=== PATIENT | male | born 1950 | race Caucasian/White ===

== ENCOUNTER 2018-04-13 20:37 | Inpatient (IN) ==
[2018-04-13] MEDS ORDERED: 0.9 % Sodium Chloride 1,000 ML IVC ONE (21:06)
[2018-04-13] MEDS ORDERED: Ondansetron ODT 4 MG TAB.RAPDIS SL ONE (21:06)
[2018-04-13] MEDS ORDERED: *HR* FentaNYL (PF) 100 MCG/2 ML VIAL IVP ONE ×2 (21:14→22:44)
[2018-04-13 21:31] LABS: Basophils # 0.1 K/mcL (0.0-0.2); Basophils % 0.4 %; Eosinophils # 0.2 K/mcL (0.0-0.6); Eosinophils % 1.5 %; Hematocrit 47.8 % (37.5-50.1); Hemoglobin 15.9 g/dL (12.9-16.9); Immature Granulocytes % 0.4 % (0-4); Lymphocytes # 1.2 K/mcL (0.6-4.6); Lymphocytes % 9.9 %; Mean Corpuscular HGB Conc 33.3 g/dL (31.6-35.5); Mean Corpuscular Volume 87.1 fL (83.0-100.0); Monocytes % 8.7 %; Neutrophils # 9.3 K/mcL (1.6-8.9); Platelet Count 178 K/mcL (140-400); Red Blood Count 5.49 M/mcL (4.19-5.50); Red Cell Distribution Width 13.9 % (11.5-14.5); Segmented Neutrophils % 79.1 %
[2018-04-13 21:50] LABS: Albumin 4.8 g/dL (3.5-5.7); Albumin/Globulin Ratio 1.4 (1.1-2.2); Bilirubin,Direct 0.1 mg/dL (0.0-0.2); Bilirubin,Indirect 0.8 mg/dL (0.0-1.2); Bilirubin,Total 0.9 mg/dL (0.3-1.0); Globulin 3.4 g/dL (2.4-3.5); Potassium 4.6 mEq/L (3.5-5.1); Total Protein 8.2 g/dL (6.4-8.9)
[2018-04-13 21:55] LABS: Bilirubin,Urine Negative (Negative); Blood,Urine Small (Negative); Clarity,Urine Clear (Clear); Color,Urine Yellow (Yellow); Glucose,Urine (UA) Normal (Normal); Ketones,Urine Negative (Negative); Leukocyte Esterase,Urine Negative (Negative); Nitrite,Urine Negative (Negative); PH,Urine 5.5 pH Units (5.0-8.0); Protein,Urine 100 mg/dL (Neg-Trace); Specific Gravity,Urine 1.013 (1.010-1.025); Urobilinogen,Urine Normal (Normal)
[2018-04-13 21:57] LABS: Bacteria,Urine None Seen per hpf (None-Few); Hyaline Casts,Urine None Seen per lpf (None-Few); Squamous Epithelial Cell,Urine None Seen per lpf (None-Few)
--- NOTE | 2018-04-13 22:14 | Emergency Department Note ---
Disposition Clinical Impression: Nephrolithiasis Disposition: Admitted As Inpatient Condition: Fair Time of Disposition: 23:32 Abdominal Pain HPI - General Chief Complaint: ED Abdominal Pain Stated Complaint: Fever, [place] Time Seen by Provider: 04/13/18 20:44 Source: patient, family Mode of arrival: ambulatory Limitations: no limitations Nursing Notes Reviewed: Yes Vital Signs Reviewed: Yes - History of Present Illness HPI Narrative: Mr. Solomon is a 67 yo male that presents for L low back pain that began yesterday. He notes pain began yesterday evening, feels similar to previous kidney stone. Diagnosed with 5mm obstructing stone in January, patient does not recall passing this. He has had nausea and vomiting since yesterday, no hematemsis. Fever of 101F yesterday. Notes this afternoon abdominal pressure and pain. He has been taking the oxycodone every 4 hours due to severity of pain. Has not taken his medications today due to nausea and vomiting. PMHx of DM , HTN, a fib, COPD, carotid stenosis, and PVD with 2 LE stents. Patient notes that his abdomen appears its normal size, stating it is normally large and taut. Normal BM yesterday, no bloody or black stools. Pain Scale: 8 - Related Data Home Medications Medication Instructions Recorded Confirmed Aspirin Enteric Coated [Aspirin EC] 325 mg PO DAILY 07/23/15 04/14/18 Atorvastatin [Lipitor] 20 mg PO HS 07/23/15 04/14/18 Carvedilol 12.5 mg PO BID 07/23/15 04/14/18 Cholestyramine 2 gm PO DAILY 07/23/15 04/14/18 Lisinopril [Zestril] 10 mg PO DAILY 07/23/15 04/14/18 Metformin HCl [Glucophage] 1,000 mg PO BID 07/23/15 04/14/18 Diltiazem [Cardizem] 240 mg PO DAILY 09/16/16 04/14/18 Gluc 2Kcl/Chondr/Padmini Hy/Hy AC 1,000 mg PO DAILY 09/16/16 04/14/18 [Glucosamine & Chondroitin Cap] Cyanocobalamin/Folic Acid [Vitamin 1,000 each PO DAILY 04/14/18 04/14/18 [id number] Acid Tablet] traZODone [TraZODone] 50 - 100 mg PO HS PRN 04/14/18 04/14/18 Allergies Allergy/AdvReac Type Severity Reaction Status Date / Time No Known Allergies Allergy Verified 04/13/18 20:41 All systems ED: reviewed and negative except as stated. Review of Systems: As Per HPI Constitutional: Reports: fever, chills ENT ED: Denies: throat pain, congestion Cardiovascular: Denies: chest pain Respiratory: Denies: dyspnea Gastrointestinal: Reports: abdominal pain, nausea, vomiting. Denies: diarrhea Genitourinary: Denies: dysuria, frequency, hematuria Musculoskeletal: Reports: back pain Integumentary: Denies: rash Neurological: Denies: weakness Abdominal Pain PMH - Past Medical History Medical history: Reports: atrial fibrillation, diabetes, hypertension, kidney stones Male Surgical History: Reports: carotid endarterectomy, cholecystectomy, other Psychiatric history: Reports: no psych history - Social History Smoking status: Former smoker Alcohol use: Reports: none Drug use: Reports: none Physical Exam - General Limitations: no limitations General appearance: alert, in no apparent distress - Head Head exam: atraumatic, normocephalic - Eye Eye exam: Present: normal appearance. Absent: scleral icterus, conjunctival injection - ENT ENT exam: normal exam, mucous membranes dry - Neck Neck exam: Present: normal inspection, full ROM - Chest Chest inspection: Present: normal inspection, symmetric chest wall rise. Absent : tenderness - Respiratory Respiratory exam: Present: normal lung sounds bilaterally. Absent: respiratory distress, accessory muscle use - Cardiovascular Cardiovascular exam: Present: regular rate, normal rhythm, +S1, +S2 - Abdominal Exam Abdominal exam: Present: tenderness (diffuse, worst in bilateral lower abdomen) , distention (patient and state this is not new.), hyperactive bowel sounds. Absent: guarding, rebound, rigidity - Extremities Exam Extremities exam: Present: normal inspection. Absent: tenderness, pedal edema - Back Exam Back exam: Present: CVA tenderness (L) (slightly lower than true CVA) - Neurological Exam Neurological exam: Present: alert, oriented X3 - Psychiatric Psychiatric exam: Present: normal affect, normal mood - Skin Skin exam: Present: warm, dry, intact, normal color Course - Consultations Consultation #1: Accepted by hospitalist, Dr. Doyle. Urologist business continuity director, Dr. Hahn, for likely consult while inpatient. Vital Signs Temperature 98.1 F 09/11/18 20:39 Pulse Rate 85 04/13/18 20:39 Respiratory Rate 18 04/13/18 20:39 Blood Pressure 174/74 04/13/18 20:39 O2 Sat by Pulse Oximetry 96 04/13/18 20:39 Temperature 99 F 04/15/18 00:04 Pulse Rate 89 04/15/18 00:38 Respiratory Rate 16 04/15/18 00:38 Blood Pressure 151/72 04/15/18 00:38 O2 Sat by Pulse Oximetry 91 04/15/18 00:38 Oxygen Delivery Oxygen Delivery Room Air Abdominal Pain - MDM Narrative Medical decision making narrative: Concern for obstructing kidney stone. Plan to recheck CT in addition to labs. Will give pain medication and zofran for symptomatic treatment. CT showing :There is a 5 mm obstructing stone in the mid left ureter with mild upstream hydroureteronephrosis. Additional nonobstructive left intrarenal stones are present. UA negative for UTI. Patient afebrile here in the ED. Creatinine elevated, likely secondary to dehydration. With poorly controlled pain and obstructing stone, only slightly moved from CT in January. Urology called, made aware of plan to admit. Hospitalist contacted and accepted patient. - Medical Records Medical records reviewed: Yes I reviewed the patient's medical records. - Lab Data Lab results reviewed: Yes I reviewed the patient's lab results. Result diagrams: 04/14/18 02:52 04/14/18 02:52 Lab Results 04/13/18 04/13/18 04/13/18 Range/Units 20:49 21:09 21:09 WBC 11.7 H (4.3-11.1) K/mcL RBC 5.49 (4.19-5.50) M/mcL Hgb 15.9 (12.9-16.9) g/dL Hct 47.8 (37.5-50.1) % MCV 87.1 (83.0-100.0) fL MCH 29.0 (28.0-33.3) pg MCHC 33.3 (31.6-35.5) g/dL RDW 13.9 (11.5-14.5) % Plt Count 178 (140-400) K/mcL MPV 10.0 (9.4-12.4) fL Immature Gran % 0.4 (0-4) % Seg Neutrophils % 79.1 % Lymphocytes % 9.9 % Monocytes % 8.7 % Eosinophils % 1.5 % Basophils % 0.4 % Neutrophils # 9.3 H (1.6-8.9) K/mcL Lymphocytes # 1.2 (0.6-4.6) K/mcL Monocytes # 1.0 (0.0-1.3) K/mcL Eosinophils # 0.2 (0.0-0.6) K/mcL Basophils # 0.1 (0.0-0.2) K/mcL PT (9.4-12.1) Seconds INR APTT (26.0-36.0) Seconds Sodium 136 (136-145) mEq/L Potassium 4.6 (3.5-5.1) mEq/L Chloride 99 (98-107) mEq/L Carbon Dioxide 26 (23-29) mEq/L BUN 18 (8-23) mg/dL Creatinine 2.06 H (0.70-1.30) mg/dL Est GFR ( Amer) 39 L (> 60) Est GFR (Non-Af Amer) 32 L (> 60) BUN/Creatinine Ratio 9 (6-26) Glucose 118 H (70-105) mg/dL POC Glucose (70-99) mg/dL Calculated Osmolality 285 (280-300) Lactic Acid (0.5-2.2) mmol/L Calcium 10.0 (8.6-10.3) mg/dL Total Bilirubin 0.9 (0.3-1.0) mg/dL Direct Bilirubin 0.1 (0.0-0.2) mg/dL Indirect Bilirubin 0.8 (0.0-1.2) mg/dL AST 18 (13-39) Units/L ALT 20 (7-52) Units/L Alkaline Phosphatase 77 (34-104) Units/L Serum Total Protein 8.2 (6.4-8.9) g/dL Albumin 4.8 (3.5-5.7) g/dL Globulin 3.4 (2.4-3.5) g/dL Albumin/Globulin Ratio 1.4 (1.1-2.2) Lipase 33 (11-82) Units/L Urine Color Yellow (Yellow) Urine Clarity Clear (Clear) Urine pH 5.5 (5.0-8.0) pH Units Ur Specific [place] 1.013 (1.010-1.025) Urine Protein 100 H (Neg-Trace) mg/dL Urine Glucose (UA) Normal (Normal) mg/dL Urine Ketones Negative (Negative) mg/dL Urine Blood Small H (Negative) Urine Nitrite Negative (Negative) Urine Bilirubin Negative (Negative) Urine Urobilinogen Normal (Normal) mg/dL Ur Leukocyte Esterase Negative (Negative) Urine Microscopic RBC 5-15 H (0-3) per hpf Urine Microscopic WBC 3-5 H (0-3) per hpf Ur Squamous Epith Cells None Seen (None-Few) per lpf Urine Bacteria None Seen (None-Few) per hpf Hyaline Casts None Seen (None-Few) per lpf Ur Culture Indicated? NO (NO) 04/13/18 04/14/18 04/14/18 Range/Units 21:50 01:09 02:52 WBC 10.4 (4.3-11.1) K/mcL RBC 5.03 (4.19-5.50) M/mcL Hgb 14.4 D (12.9-16.9) g/dL Hct 44.2 (37.5-50.1) % MCV 87.9 (83.0-100.0) fL MCH 28.6 (28.0-33.3) pg MCHC 32.6 (31.6-35.5) g/dL RDW 14.1 (11.5-14.5) % Plt Count 157 (140-400) K/mcL MPV 10.6 (9.4-12.4) fL Immature Gran % 0.3 (0-4) % Seg Neutrophils % 76.8 % Lymphocytes % 13.1 % Monocytes % 8.7 % Eosinophils % 0.8 % Basophils % 0.3 % Neutrophils # 8.0 (1.6-8.9) K/mcL Lymphocytes # 1.4 (0.6-4.6) K/mcL Monocytes # 0.9 (0.0-1.3) K/mcL Eosinophils # 0.1 (0.0-0.6) K/mcL Basophils # 0.0 (0.0-0.2) K/mcL PT (9.4-12.1) Seconds INR APTT (26.0-36.0) Seconds Sodium (136-145) mEq/L Potassium (3.5-5.1) mEq/L Chloride (98-107) mEq/L Carbon Dioxide (23-29) mEq/L BUN (8-23) mg/dL Creatinine (0.70-1.30) mg/dL Est GFR ( Amer) (> 60) Est GFR (Non-Af Amer) (> 60) BUN/Creatinine Ratio (6-26) Glucose (70-105) mg/dL POC Glucose 109 H (70-99) mg/dL Calculated Osmolality (280-300) Lactic Acid 1.5 (0.5-2.2) mmol/L Calcium (8.6-10.3) mg/dL Total Bilirubin (0.3-1.0) mg/dL Direct Bilirubin (0.0-0.2) mg/dL Indirect Bilirubin (0.0-1.2) mg/dL AST (13-39) Units/L ALT (7-52) Units/L Alkaline Phosphatase (34-104) Units/L Serum Total Protein (6.4-8.9) g/dL Albumin (3.5-5.7) g/dL Globulin (2.4-3.5) g/dL Albumin/Globulin Ratio (1.1-2.2) Lipase (11-82) Units/L Urine Color (Yellow) Urine Clarity (Clear) Urine pH (5.0-8.0) pH Units Ur Specific [place] (1.010-1.025) Urine Protein (Neg-Trace) mg/dL Urine Glucose (UA) (Normal) mg/dL Urine Ketones (Negative) mg/dL Urine Blood (Negative) Urine Nitrite (Negative) Urine Bilirubin (Negative) Urine Urobilinogen (Normal) mg/dL Ur Leukocyte Esterase (Negative) Urine Microscopic RBC (0-3) per hpf Urine Microscopic WBC (0-3) per hpf Ur Squamous Epith Cells (None-Few) per lpf Urine Bacteria (None-Few) per hpf Hyaline Casts (None-Few) per lpf Ur Culture Indicated? (NO) 04/14/18 04/14/18 04/14/18 Range/Units 02:52 02:52 02:52 WBC (4.3-11.1) K/mcL RBC (4.19-5.50) M/mcL Hgb (12.9-16.9) g/dL Hct (37.5-50.1) % MCV (83.0-100.0) fL MCH (28.0-33.3) pg MCHC (31.6-35.5) g/dL RDW (11.5-14.5) % Plt Count (140-400) K/mcL MPV (9.4-12.4) fL Immature Gran % (0-4) % Seg Neutrophils % % Lymphocytes % % Monocytes % % Eosinophils % % Basophils % % Neutrophils # (1.6-8.9) K/mcL Lymphocytes # (0.6-4.6) K/mcL Monocytes # (0.0-1.3) K/mcL Eosinophils # (0.0-0.6) K/mcL Basophils # (0.0-0.2) K/mcL PT 13.0 H (9.4-12.1) Seconds INR 1.2 APTT 32.4 (26.0-36.0) Seconds Sodium 137 (136-145) mEq/L Potassium 4.4 (3.5-5.1) mEq/L Chloride 103 (98-107) mEq/L Carbon Dioxide 27 (23-29) mEq/L BUN 18 (8-23) mg/dL Creatinine 1.91 H (0.70-1.30) mg/dL Est GFR ( Amer) 43 L (> 60) Est GFR (Non-Af Amer) 35 L (> 60) BUN/Creatinine Ratio 9 (6-26) Glucose 112 H (70-105) mg/dL POC Glucose (70-99) mg/dL Calculated Osmolality 287 (280-300) Lactic Acid (0.5-2.2) mmol/L Calcium 9.0 (8.6-10.3) mg/dL Total Bilirubin (0.3-1.0) mg/dL Direct Bilirubin (0.0-0.2) mg/dL Indirect Bilirubin (0.0-1.2) mg/dL AST (13-39) Units/L ALT (7-52) Units/L Alkaline Phosphatase (34-104) Units/L Serum Total Protein (6.4-8.9) g/dL Albumin (3.5-5.7) g/dL Globulin (2.4-3.5) g/dL Albumin/Globulin Ratio (1.1-2.2) Lipase (11-82) Units/L Urine Color (Yellow) Urine Clarity (Clear) Urine pH (5.0-8.0) pH Units Ur Specific [place] (1.010-1.025) Urine Protein (Neg-Trace) mg/dL Urine Glucose (UA) (Normal) mg/dL Urine Ketones (Negative) mg/dL Urine Blood (Negative) Urine Nitrite (Negative) Urine Bilirubin (Negative) Urine Urobilinogen (Normal) mg/dL Ur Leukocyte Esterase (Negative) Urine Microscopic RBC (0-3) per hpf Urine Microscopic WBC (0-3) per hpf Ur Squamous Epith Cells (None-Few) per lpf Urine Bacteria (None-Few) per hpf Hyaline Casts (None-Few) per lpf Ur Culture Indicated? (NO) 04/14/18 04/14/18 04/14/18 Range/Units 05:56 07:55 11:56 WBC (4.3-11.1) K/mcL RBC (4.19-5.50) M/mcL Hgb (12.9-16.9) g/dL Hct (37.5-50.1) % MCV (83.0-100.0) fL MCH (28.0-33.3) pg MCHC (31.6-35.5) g/dL RDW (11.5-14.5) % Plt Count (140-400) K/mcL MPV (9.4-12.4) fL Immature Gran % (0-4) % Seg Neutrophils % % Lymphocytes % % Monocytes % % Eosinophils % % Basophils % % Neutrophils # (1.6-8.9) K/mcL Lymphocytes # (0.6-4.6) K/mcL Monocytes # (0.0-1.3) K/mcL Eosinophils # (0.0-0.6) K/mcL Basophils # (0.0-0.2) K/mcL PT (9.4-12.1) Seconds INR APTT (26.0-36.0) Seconds Sodium (136-145) mEq/L Potassium (3.5-5.1) mEq/L Chloride (98-107) mEq/L Carbon Dioxide (23-29) mEq/L BUN (8-23) mg/dL Creatinine (0.70-1.30) mg/dL Est GFR ( Amer) (> 60) Est GFR (Non-Af Amer) (> 60) BUN/Creatinine Ratio (6-26) Glucose (70-105) mg/dL POC Glucose 110 H 109 H 104 H (70-99) mg/dL Calculated Osmolality (280-300) Lactic Acid (0.5-2.2) mmol/L Calcium (8.6-10.3) mg/dL Total Bilirubin (0.3-1.0) mg/dL Direct Bilirubin (0.0-0.2) mg/dL Indirect Bilirubin (0.0-1.2) mg/dL AST (13-39) Units/L ALT (7-52) Units/L Alkaline Phosphatase (34-104) Units/L Serum Total Protein (6.4-8.9) g/dL Albumin (3.5-5.7) g/dL Globulin (2.4-3.5) g/dL Albumin/Globulin Ratio (1.1-2.2) Lipase (11-82) Units/L Urine Color (Yellow) Urine Clarity (Clear) Urine pH (5.0-8.0) pH Units Ur Specific [place] (1.010-1.025) Urine Protein (Neg-Trace) mg/dL Urine Glucose (UA) (Normal) mg/dL Urine Ketones (Negative) mg/dL Urine Blood (Negative) Urine Nitrite (Negative) Urine Bilirubin (Negative) Urine Urobilinogen (Normal) mg/dL Ur Leukocyte Esterase (Negative) Urine Microscopic RBC (0-3) per hpf Urine Microscopic WBC (0-3) per hpf Ur Squamous Epith Cells (None-Few) per lpf Urine Bacteria (None-Few) per hpf Hyaline Casts (None-Few) per lpf Ur Culture Indicated? (NO) 04/14/18 Range/Units 16:35 WBC (4.3-11.1) K/mcL RBC (4.19-5.50) M/mcL Hgb (12.9-16.9) g/dL Hct (37.5-50.1) % MCV (83.0-100.0) fL MCH (28.0-33.3) pg MCHC (31.6-35.5) g/dL RDW (11.5-14.5) % Plt Count (140-400) K/mcL MPV (9.4-12.4) fL Immature Gran % (0-4) % Seg Neutrophils % % Lymphocytes % % Monocytes % % Eosinophils % % Basophils % % Neutrophils # (1.6-8.9) K/mcL Lymphocytes # (0.6-4.6) K/mcL Monocytes # (0.0-1.3) K/mcL Eosinophils # (0.0-0.6) K/mcL Basophils # (0.0-0.2) K/mcL PT (9.4-12.1) Seconds INR APTT (26.0-36.0) Seconds Sodium (136-145) mEq/L Potassium (3.5-5.1) mEq/L Chloride (98-107) mEq/L Carbon Dioxide (23-29) mEq/L BUN (8-23) mg/dL Creatinine (0.70-1.30) mg/dL Est GFR ( Amer) (> 60) Est GFR (Non-Af Amer) (> 60) BUN/Creatinine Ratio (6-26) Glucose (70-105) mg/dL POC Glucose 123 H (70-99) mg/dL Calculated Osmolality (280-300) Lactic Acid (0.5-2.2) mmol/L Calcium (8.6-10.3) mg/dL Total Bilirubin (0.3-1.0) mg/dL Direct Bilirubin (0.0-0.2) mg/dL Indirect Bilirubin (0.0-1.2) mg/dL AST (13-39) Units/L ALT (7-52) Units/L Alkaline Phosphatase (34-104) Units/L Serum Total Protein (6.4-8.9) g/dL Albumin (3.5-5.7) g/dL Globulin (2.4-3.5) g/dL Albumin/Globulin Ratio (1.1-2.2) Lipase (11-82) Units/L Urine Color (Yellow) Urine Clarity (Clear) Urine pH (5.0-8.0) pH Units Ur Specific [place] (1.010-1.025) Urine Protein (Neg-Trace) mg/dL Urine Glucose (UA) (Normal) mg/dL Urine Ketones (Negative) mg/dL Urine Blood (Negative) Urine Nitrite (Negative) Urine Bilirubin (Negative) Urine Urobilinogen (Normal) mg/dL Ur Leukocyte Esterase (Negative) Urine Microscopic RBC (0-3) per hpf Urine Microscopic WBC (0-3) per hpf Ur Squamous Epith Cells (None-Few) per lpf Urine Bacteria (None-Few) per hpf Hyaline Casts (None-Few) per lpf Ur Culture Indicated? (NO) - Radiology Data Radiology results reviewed: Yes I reviewed the patient's radiology results. Attestation Statement - Attestation Attestation: I, Mark Shah, examined this patient and my medical decision-making was reviewed with the ESCAPEMENT MATCHER/PA/Advanced Practice Nurse/Resident Physician. I agree with the documented findings, disposition and treatment plan as described except to the extent set forth below. 67-year-old male presents emergency Department with concerns of flank pain. Patient states it feels similar to his previous kidney stone. Repeat CT shows that the stone has only moved short distance compared to month and a half ago. Patient reportedly had a fever prior to arrival. He denies recent trauma. He was given multiple doses of pain medication emergency department. We spoke with the urologist who agreed that He will be admitted to the hospitalist for further care and evaluation.
--- NOTE | 2018-04-13 23:58 | Internal Med History&Physical ---
<Sven Araujo - Last Filed: 04/14/18 00:18> Date of Encounter: 04/14/18 Time of Encounter: 23:58 Internal Medicine - H&P: HPI Chief complaint: N/V fever Admitted From: Home Plans for Post Hospital Care: Home History of present illness: Mr. Solomon is a 67 year old male presents with cc of N/V and fever. Patient developed N/V last night along with left flank pain that was sharp intermittent without radiation. He has hx of kidney stones and this felt similar. He reports vomiting yellow stomach contents 12x since presentation and has not had a mean in the last 24 hours. He denies hemetemesis He had a fever of 101. His pain worsened this afternoon and now involved the left lower abdomen. He took oxycodone for his pain but that did not completely relieve it and he took zofran for nausea without success. He reports decrease urine production and once had episode of dysuria. He denies diarrhea. Patient underwent Ct/abdomen pelvis and was found to have 5mm obstructing stone in the mid left ureter with mild upstream hydrouretonephrosis along with nonobstrutive right nephorlithiasis. Urology was consulted by ED. Patient presented to [facility] ED with similar complaint in January 2018 and was known to have this 5mm kidney stone in the left upper ureter causing left obstructive uropathy and was followed by urology outpatient with conservative treatment. Past Med Surg Social Fam HX - Past Medical History Medical history: atrial fibrillation, diabetes, hypertension, kidney stones Additional medical history: Peripheral artery disease Psychiatric history: no psych history - Past Surgical History Surgical History: vascular surgery (b/l LE stents for PAD) Additional surgical history: ablasion - Social History Smoking Status: Former smoker Smokeless Tobacco Status: No Alcohol use: none Drug use: none - Family History Father Hx Family Cardiac Disorders: Yes (cabg) Brother Hx Family Cardiac Disorders: Yes (PAD, carotid artherosclerotic disease) Internal Medicine - H&P: Meds Aspirin Enteric Coated [Aspirin EC] 325 mg PO DAILY 07/23/15 [History] Atorvastatin [Lipitor] 20 mg PO HS 07/23/15 [History] Carvedilol 12.5 mg PO BID 07/23/15 [History] Cholestyramine 2 gm PO DAILY 07/23/15 [History] Lisinopril [Zestril] 10 mg PO DAILY 07/23/15 [History] Metformin HCl [Glucophage] 1,000 mg PO BID 07/23/15 [History] Diltiazem [Cardizem] 240 mg PO DAILY 09/16/16 [History] Gluc 2Kcl/Chondr/Padmini Hy/Hy AC [Glucosamine & Chondroitin Cap] 1,000 mg PO DAILY 09/16/16 [History] Ondansetron ODT [Zofran ODT] 4 mg SL Q4HR PRN #10 tab.rapdis 02/24/18 [Rx] Oxycodone HCl [Oxaydo] 7.5 mg PO Q4-6H PRN 4 Days #15 tablet.orl 02/24/18 [Rx] Cyanocobalamin/Folic Acid [Vitamin C45-Fspbk Acid Tablet] 1,000 each PO DAILY [History] 3 Allergy/AdvReac Type Severity Reaction Status Date / Time No Known Allergies Allergy Verified 04/13/18 20:41 All Systems PM: A 10-system review of systems was performed and is negative for pertinent findings except as documented above in the HPI. Review of systems: Constitutional: Reports fevers, denies chills HEENT: Denies headache, trauma, blurry vision, eye discharge, ear pain, ear discharge neck pain, sore throat, rhinorrhea Heart: Denies chest pain palpitations, LE edema Lungs: Denies shortness of breath cough Abdomen: Reports abdominal pain, nausea, vomiting. Denies diarrhea MSK: Reports back pain. Denies falls, joint pain Kidney: Reports dysuria and denies hematuria Skin: Denies rash, ulcers Neuro: Denies numbness and tingling Psych: denies axniety, depression - Constitutional Vitals: Temp Pulse Resp BP Pulse Ox 98.1 F 86 18 147/73 94 04/13/18 20:39 04/13/18 23:16 04/13/18 23:16 04/13/18 23:16 04/13/18 23:16 Exam: General: pleasant, moderate distress, dry heaving HEENT: Head atraumatic, normocephalic, EOMI, PERRL, absent ear discharge or trauma, Moist Mucous Membranes, uvula midline Neck: nontender to palpation, absent lymphadenopathy, Cardiovascualr: Regular rate and rhythm with no murmur, absent gallops or rubs, absent pedal edema, radial pulses 2 out of 4 Lungs: Clear to auscultation bilaterally, not in respiratory distress Abdomen: Soft tender LLQ, nondistended positive bowel sounds, Skin: warm and dry, absent rash, absent open wounds and nodules MSK: absent clubbing, cyanosis, joints without swelling Neuro: Cranial nerves II through XII intact, UE and LE sensation equal bilaterally, UE and LEstrength 5/5, alert oriented 3, Psych: good insight and judgment, Internal Med - H&P Results - Labs CBC & Chem 7: 04/13/18 21:09 04/13/18 21:09 - Assessment and plan (1) Obstructive nephropathy Current Visit: Yes Status: Acute Assessment and plan: 2nd to 5mm renal stone in the left ureter with hydrouretonephrosis as per CT abdomen/pelvis afebrile, white count 11.7 patient has hx of nephrolithiasis and followed by urology Will start IV fluids, flomax, pain control, phenergan prn for nasuea, npo, consult urology, pt/inr (2) JENN (acute kidney injury) Current Visit: Yes Status: Acute Assessment and plan: 2nd to obstructive uropathy jenn on ckd3 IVF started repeat bmp in the morning (3) Atrial fibrillation Current Visit: Yes Status: Acute Assessment and plan: hx of afib controlled rate continue cardizem and carvedilol hold xeralto Qualifiers: Atrial fibrillation type: unspecified Qualified Code(s): I48.91 - Unspecified atrial fibrillation (4) Diabetes mellitus Current Visit: Yes Status: Acute Assessment and plan: hx of DM2 non-insulin dependent start low dose SSI NPO q6h accuchecks Qualifiers: Diabetes mellitus type: type 2 Diabetes mellitus public health insulin use: without public health use Diabetes mellitus complication status: without complication Qualified Code(s): E11.9 - Type 2 diabetes mellitus without complications (5) Hx of essential hypertension Current Visit: Yes Status: Acute Assessment and plan: controlled continue carvedilol (6) Nephrolithiasis Current Visit: Yes Status: Chronic - Time Spent With Patient Total time spent is greater than 50% in coordination of care (as documented) at patient's floor/unit and/or counseling patient: <Uche Horton - Last Filed: 04/14/18 00:47> Date of Encounter: 04/14/18 Internal Medicine - H&P: HPI History of present illness: Mr. Solomon is a 67 year old male All Systems PM: A 10-system review of systems was performed and is negative for pertinent findings except as documented above in the HPI. - Constitutional Vitals: Temp Pulse Resp BP Pulse Ox 98.1 F 86 18 147/73 94 04/13/18 20:39 04/13/18 23:16 04/13/18 23:16 04/13/18 23:16 04/13/18 23:16 Internal Med - H&P Results - Labs CBC & Chem 7: 04/13/18 21:09 04/13/18 21:09 - Assessment and plan (1) Nephrolithiasis Current Visit: Yes Status: Chronic (2) Atrial fibrillation Current Visit: Yes Status: Acute Qualifiers: Atrial fibrillation type: unspecified Qualified Code(s): I48.91 - Unspecified atrial fibrillation (3) Diabetes mellitus Current Visit: Yes Status: Acute Qualifiers: Diabetes mellitus type: type 2 Diabetes mellitus public health insulin use: without public health use Diabetes mellitus complication status: without complication Qualified Code(s): E11.9 - Type 2 diabetes mellitus without complications (4) Hx of essential hypertension Current Visit: Yes Status: Acute (5) Obstructive nephropathy Current Visit: Yes Status: Acute (6) JENN (acute kidney injury) Current Visit: Yes Status: Acute - Time Spent With Patient Total time spent is greater than 50% in coordination of care (as documented) at patient's floor/unit and/or counseling patient: - Attending Attestation Mr Solomon is a 67 year old man with a history of peripheral artery disease, hypertension and diabetes who has a known 5mm left ureteral stone that was being managed expectantly since first diagnosed in January but now presents with acute right flank pain that has been rebellious to the Rx oral narcotics. In the ER it was noted present on CT and now causing obstruction with mild upstream hydronephrosis. His says he has been taking oxycodone every 4 hours with no relief. He also complained of abdominal distension however as per his , it is the regular large size and taut. He has felt feverish and had chills with his stating that he was 101F before bringing him to the ER. He required 2 doses of 50mcg fentanyl with moderate pain relief achieved. Physical exam remarkable for obese white man sitting up in bed, notably in some discomfort, non-peritoneal abdomen but CVA tenderness present. Labs reviewed remarkable for Cr of 2.06; last checked in January was 1.79 and in November as 1.23. UA grossly unremarkable and not suggestive of UTI. Will admit for JENN of post-renal etiology secondary to obstructive nephrolithiasis complicated by hydronephrosis. Will consult urology, IVF and pain meds indicated. Start tamsulosin daily. Home meds should be continued. Use insulin sliding scale while hospitalized for now.
[2018-04-14] MEDS ORDERED: Naloxone 0.4 MG/ML INJ IVP PRN (00:01)
[2018-04-14] MEDS ORDERED: OXYCODONE Oral CONC 10 MG/0.5 ML ORAL.SYG SL PRN (00:01)
[2018-04-14] MEDS ORDERED: *HR* Promethazine 25 MG/ML VIAL IVP PRN (00:01)
[2018-04-14] MEDS: OXYCODONE Oral CONC 10 MG/0.5 ML ORAL.SYG SL PRN ×2 (00:47→10:31)
[2018-04-14] MEDS ORDERED: Dextrose Gel 15 GM/37.5 ML TUBE PO PRN ×2 (00:47)
[2018-04-14] MEDS ORDERED: D5% in Water 1,000 ML IVC PRN (00:47)
[2018-04-14] MEDS: 0.9 % Sodium Chloride 1,000 ML IVC SCH ×2 (00:47→14:05)
[2018-04-14] MEDS ORDERED: *HR* Dextrose 50 % in Water (Syg) 50 ML SYRINGE IVP PRN (00:47)
[2018-04-14 05:06] LABS: Basophils % 0.3 %; Eosinophils # 0.1 K/mcL (0.0-0.6); Eosinophils % 0.8 %; Hematocrit 44.2 % (37.5-50.1); Hemoglobin 14.4 g/dL (12.9-16.9); Immature Granulocytes % 0.3 % (0-4); Lymphocytes # 1.4 K/mcL (0.6-4.6); Lymphocytes % 13.1 %; Mean Corpuscular HGB Conc 32.6 g/dL (31.6-35.5); Mean Corpuscular Hemoglobin 28.6 pg (28.0-33.3); Mean Corpuscular Volume 87.9 fL (83.0-100.0); Mean Platelet Volume 10.6 fL (9.4-12.4); Monocytes # 0.9 K/mcL (0.0-1.3); Monocytes % 8.7 %; Platelet Count 157 K/mcL (140-400); Red Blood Count 5.03 M/mcL (4.19-5.50); Red Cell Distribution Width 14.1 % (11.5-14.5); Segmented Neutrophils % 76.8 %
[2018-04-14 05:11] LABS: INR 1.2
[2018-04-14 05:29] LABS: Potassium 4.4 mEq/L (3.5-5.1)
[2018-04-14] MEDS: *HR* Heparin 5,000 UNIT/ML VIAL SQ SCH ×3 (06:00→22:35)
[2018-04-14] MEDS: Insulin LISPRO 300 UNITS/3 ML VIAL SQ SCH ×3 (06:03→18:55)
[2018-04-14] MEDS: *HR* HYDROcodone/Acet 5/325 mg TABLET PO PRN ×2 (06:06→11:23)
[2018-04-14] MEDS ORDERED: Diltiazem CD (24hr) 240 MG CAPSULE PO SCH (09:00)
[2018-04-14] MEDS ORDERED: Aspirin Enteric Coated 325 MG Tablet PO SCH (09:00)
--- NOTE | 2018-04-14 09:44 | Urology Progress Note ---
Date of Encounter: 04/14/18 Time of Encounter: 09:00 - Assessment and Plan (1) Left ureteral calculus Current Visit: Yes Status: Acute Assessment and plan: Patient is a 67 year old male who presents with an obstructing left 5mm mid ureteral calculus with mild hydronephrosis. Vital signs are stable and patient is afebrile. Patient will remain NPO after noon. Reviewed CT findings with patient. Discussed surgical risks and benefits. Patient verbalized understanding and is prepared to undergo left ureteroscopic stone extraction with holmium laser lithotripsy and ureteral stent placement on 04/14/18. Progress Note Subjective: no new complaints Narrative: Patient is a 67 year old male who presents with left flank pain and gross hematuria. Patient states he is a recurrent stone former. Most recent stone diagnosed approximately 2 months ago. Patient reports 10-12 previous stones, all of which were passed spontaneously. Patient currently reports left flank pain, nausea, vomiting, chills, and gross hematuria. Patient denies documented fever, diaphoresis, dysuria, voiding difficulty. Patient denies known family history of renal stones. Patient has undergone CT scan abdomen and pelvis. Objective Initial Vital Signs Temp Pulse Resp BP Pulse Ox 98.1 F 85 18 174/74 96 04/13/18 20:39 04/13/18 20:39 04/13/18 20:39 04/13/18 20:39 04/13/18 20:39 - General physical appearance Present: no distress, moderate pain, obese - Respiratory Present: normal expansion, normal respiratory effort - Abdomen Present: soft, tender (left CVAT) - Integumentary Present: no rash, no abnormal pigmentation - Musculoskeletal Present: normal posture - Psychiatric Present: oriented to time, oriented to person, oriented to place, speech is normal, memory intact - Labs 04/14/18 02:52 04/14/18 02:52 Diabetes panel 04/14/18 Range/Units 02:52 Sodium 137 (136-145) mEq/L Potassium 4.4 (3.5-5.1) mEq/L Chloride 103 (98-107) mEq/L Carbon Dioxide 27 (23-29) mEq/L BUN 18 (8-23) mg/dL Creatinine 1.91 H (0.70-1.30) mg/dL Glucose 112 H (70-105) mg/dL Calcium 9.0 (8.6-10.3) mg/dL Calcium panel 04/14/18 Range/Units 02:52 Calcium 9.0 (8.6-10.3) mg/dL Pituitary panel 04/14/18 Range/Units 02:52 Sodium 137 (136-145) mEq/L Potassium 4.4 (3.5-5.1) mEq/L Chloride 103 (98-107) mEq/L Carbon Dioxide 27 (23-29) mEq/L BUN 18 (8-23) mg/dL Creatinine 1.91 H (0.70-1.30) mg/dL Glucose 112 H (70-105) mg/dL Calcium 9.0 (8.6-10.3) mg/dL Adrenal panel 04/14/18 Range/Units 02:52 Sodium 137 (136-145) mEq/L Potassium 4.4 (3.5-5.1) mEq/L Chloride 103 (98-107) mEq/L Carbon Dioxide 27 (23-29) mEq/L BUN 18 (8-23) mg/dL Creatinine 1.91 H (0.70-1.30) mg/dL Glucose 112 H (70-105) mg/dL Calcium 9.0 (8.6-10.3) mg/dL Consult Discharge Plan - Plan Referrals: Nael Lora MD [Primary Care Provider] -
--- NOTE | 2018-04-14 09:49 | Internal Med Progress Note ---
Hospitalist Progress Note - Encounter Date of Encounter: 04/14/18 Time of Encounter: 09:49 - Subjective Interval History: Patient was seen and examined at bedside. Currently denies any pain or discomfort. He is awaiting to undergo left ureteroscopy laser lithotripsy and stent placement, per urology - Exam Vitals: Temp Pulse Resp BP Pulse Ox 98.4 F 69 18 126/68 93 04/14/18 07:56 04/14/18 07:56 04/14/18 07:56 04/14/18 07:56 04/14/18 07:56 Exam: General: pleasant,cooperative HEENT: Head atraumatic, normocephalic, EOMI, PERRL, absent ear discharge or trauma, Moist Mucous Membranes, uvula midline Neck: nontender to palpation, absent lymphadenopathy, Cardiovascualr: Regular rate and rhythm with no murmur, absent gallops or rubs, absent pedal edema, radial pulses 2 out of 4 Lungs: Clear to auscultation bilaterally, not in respiratory distress Abdomen: Soft tender LLQ, nondistended positive bowel sounds, Skin: warm and dry, absent rash, absent open wounds and nodules MSK: absent clubbing, cyanosis, joints without swelling Neuro: Cranial nerves II through XII intact, UE and LE sensation equal bilaterally, UE and LEstrength 5/5, alert oriented 3, Psych: good insight and judgment, - Assessment and Plan (1) Obstructive nephropathy Current Visit: Yes Status: Acute Assessment and Plan: 5mm renal stone in the left ureter with hydrouretonephrosis as per CT abdomen/ pelvis afebrile, white count 11.7-on presentation template for today patient has hx of nephrolithiasis and followed by urology-urology has been consulted patient will undergo left ureteroscopy laser lithotripsy and stent placement today Continue IV fluids, flomax, pain control, phenergan prn for nasuea, npo, (2) Nephrolithiasis Current Visit: Yes Status: Chronic (3) Atrial fibrillation Current Visit: Yes Status: Acute Assessment and Plan: hx of afib controlled rate continue cardizem and carvedilol hold xeralto (4) Diabetes mellitus Current Visit: Yes Status: Acute Assessment and Plan: hx of DM2 non-insulin dependent start low dose SSI NPO q6h accuchecks (5) Hx of essential hypertension Current Visit: Yes Status: Acute Assessment and Plan: controlled continue carvedilol (6) JENN (acute kidney injury) Current Visit: Yes Status: Acute Assessment and Plan: 2nd to obstructive uropathy- improving jenn on ckd3 IVF continued monitor BMP - Time Spent with Patient Total time spent is greater than 50% in coordination of care (as documented) at patient's floor/unit and/or counseling patient: Internal Medicine: Result - Labs CBC & Chem 7: 04/14/18 02:52 04/14/18 02:52 Labs: Short CBC 04/14/18 Range/Units 02:52 WBC 10.4 (4.3-11.1) K/mcL Hgb 14.4 D (12.9-16.9) g/dL Hct 44.2 (37.5-50.1) % Plt Count 157 (140-400) K/mcL Neutrophils # 8.0 (1.6-8.9) K/mcL BMP 04/14/18 02:52 Sodium 137 Potassium 4.4 Chloride 103 Carbon Dioxide 27 BUN 18 Creatinine 1.91 H Glucose 112 H Calcium 9.0 - ABG Interpretation ABG results: PT/INR, D-dimer PT 13.0 Seconds (9.4-12.1) H 04/14/18 02:52 Consult Discharge Plan - Plan Referrals: Nael Lora MD [Primary Care Provider] - (3) Atrial fibrillation Qualifiers: Atrial fibrillation type: unspecified Qualified Code(s): I48.91 - Unspecified atrial fibrillation (4) Diabetes mellitus Qualifiers: Diabetes mellitus type: type 2 Diabetes mellitus residential insulin use: without residential use Diabetes mellitus complication status: without complication Qualified Code(s): E11.9 - Type 2 diabetes mellitus without complications
--- NOTE | 2018-04-14 09:56 | Urology - Consult Note ---
Date of Encounter: 04/14/18 Time of Encounter: 09:15 - Assessment and Plan (1) Left ureteral calculus Current Visit: Yes Status: Acute Assessment and plan: Patient is a 67 year old male who presents with a left obstructing 5mm mid ureteral stone with mild hydronephrosis. Patient's vital signs are stable and afebrile. Reviewed CT findings with patient. Discussed surgical risks and benefits. Patient verbalizes understanding, consent has been signed, and he is prepared to undergo a left ureteroscopic stone extraction with holmium laser lithotripsy, ureteral stent placement on 04/14/[address] Hahn. Patient will remain NPO and recieve Ancef prior to procedure. Urology CN:HPI Consult date: 04/14/18 Reason for consult Urology: Hydronephrosis (left ureteral stone) History of present illness: Patient is a 67 year old male who presents with left flank pain and gross hematuria. Patient states pain has been intermittent since he was diagnosed with a renal stone 2 months ago. Patient states pain acutely worsened over the last two days and was accompanied with gross hematuria, chills, and urinary hesitancy. Patient denies fever, dysuria. Patient admits to an extensive stone history stating he passed 10-12 stones all spontaneously in his lifetime. Patient denies a known family history of renal stones. Patient has undergone a CT scan of the abdomen and pelvis. Past Med Surg Social Fam HX - Past Medical History Medical history: atrial fibrillation, diabetes, hypertension, kidney stones Additional medical history: Peripheral artery disease Psychiatric history: no psych history - Past Surgical History Surgical History: vascular surgery (b/l LE stents for PAD) Additional surgical history: ablasion - Social History Smoking Status: Former smoker Smokeless Tobacco Status: No Alcohol use: none Drug use: none - Family History Father Hx Family Cardiac Disorders: Yes (cabg) Hx Family Endocrine Disorder: Yes (DM) Brother Hx Family Cardiac Disorders: Yes (PAD, carotid artherosclerotic disease) Medications and Allergies Aspirin Enteric Coated [Aspirin EC] 325 mg PO DAILY 07/23/15 [History] Atorvastatin [Lipitor] 20 mg PO HS 07/23/15 [History] Carvedilol 12.5 mg PO BID 07/23/15 [History] Cholestyramine 2 gm PO DAILY 07/23/15 [History] Lisinopril [Zestril] 10 mg PO DAILY 07/23/15 [History] Metformin HCl [Glucophage] 1,000 mg PO BID 07/23/15 [History] Diltiazem [Cardizem] 240 mg PO DAILY 09/16/16 [History] Gluc 2Kcl/Chondr/Padmini Hy/Hy AC [Glucosamine & Chondroitin Cap] 1,000 mg PO DAILY 09/16/16 [History] Cyanocobalamin/Folic Acid [Vitamin U62-Bqlmu Acid Tablet] 1,000 each PO DAILY [History] traZODone [TraZODone] 50 - 100 mg PO HS PRN 04/14/18 [History] 3 Allergy/AdvReac Type Severity Reaction Status Date / Time No Known Allergies Allergy Verified 04/13/18 20:41 Review of Systems - Constitutional chills, no fatigue, no fever(s) - EENT Nose, mouth and throat: no dizziness, no headache(s) - Cardiovascular no chest pain, no diaphoresis, no dyspnea - Respiratory no cough, no dyspnea - Gastrointestinal abdominal pain, nausea, no vomiting - Genitourinary hematuria, urinary hesitancy, no difficulty urinating, no dysuria, no urinary frequency, no urinary urgency - Musculoskeletal back pain, no muscle weakness - Integumentary no erythema, no lesions, no rash - Neurological no confusion, no sensory deficit - Psychiatric no anxiety, no confusion Exam Initial Vital Signs Temp Pulse Resp BP Pulse Ox 98.1 F 85 18 174/74 96 04/13/18 20:39 04/13/18 20:39 04/13/18 20:39 04/13/18 20:39 04/13/18 20:39 - General physical appearance Present: no distress, no pain, obese - Eyes Present: PERRL, normal ocular movement - ENT Present: normal nares, no hearing loss, no congestion - Neck Present: no masses, trachea midline - Respiratory Present: normal respiratory effort - Cardiovascular Cardiovascular exam IM: RRR - Abdomen Abdomen: Present: soft, tender (left cvat) - Integumentary Present: no rash, no abnormal pigmentation - Neurologic Present: normal coordination. Absent: disoriented Urology Results - Labs 04/14/18 02:52 04/14/18 02:52 Abnormal lab results PT 13.0 Seconds (9.4-12.1) H 04/14/18 02:52 Creatinine 1.91 mg/dL (0.70-1.30) H 04/14/18 02:52 Est GFR ( Amer) 43 (> 60) L 04/14/18 02:52 Est GFR (Non-Af Amer) 35 (> 60) L 04/14/18 02:52 Glucose 112 mg/dL (70-105) H 04/14/18 02:52 Urine Protein 100 mg/dL (Neg-Trace) H 04/13/18 20:49 Urine Blood Small (Negative) H 04/13/18 20:49 Urine Microscopic RBC 5-15 per hpf (0-3) H 04/13/18 20:49 Urine Microscopic WBC 3-5 per hpf (0-3) H 04/13/18 20:49 Diabetes panel 04/14/18 Range/Units 02:52 Sodium 137 (136-145) mEq/L Potassium 4.4 (3.5-5.1) mEq/L Chloride 103 (98-107) mEq/L Carbon Dioxide 27 (23-29) mEq/L BUN 18 (8-23) mg/dL Creatinine 1.91 H (0.70-1.30) mg/dL Glucose 112 H (70-105) mg/dL Calcium 9.0 (8.6-10.3) mg/dL Calcium panel 04/14/18 Range/Units 02:52 Calcium 9.0 (8.6-10.3) mg/dL Pituitary panel 04/14/18 Range/Units 02:52 Sodium 137 (136-145) mEq/L Potassium 4.4 (3.5-5.1) mEq/L Chloride 103 (98-107) mEq/L Carbon Dioxide 27 (23-29) mEq/L BUN 18 (8-23) mg/dL Creatinine 1.91 H (0.70-1.30) mg/dL Glucose 112 H (70-105) mg/dL Calcium 9.0 (8.6-10.3) mg/dL Adrenal panel 04/14/18 Range/Units 02:52 Sodium 137 (136-145) mEq/L Potassium 4.4 (3.5-5.1) mEq/L Chloride 103 (98-107) mEq/L Carbon Dioxide 27 (23-29) mEq/L BUN 18 (8-23) mg/dL Creatinine 1.91 H (0.70-1.30) mg/dL Glucose 112 H (70-105) mg/dL Calcium 9.0 (8.6-10.3) mg/dL All other labs normal. - Imaging CT scan - abdomen: report reviewed, image reviewed CT scan - pelvis: report reviewed, image reviewed Consult Discharge Plan - Plan Referrals: Nael Lora MD [Primary Care Provider] -
--- NOTE | 2018-04-14 19:36 | Anesthesia Evaluation PreOp ---
Date of Encounter: 04/14/18 Time of Encounter: 19:33 - Past History Planned Operation: left ureteroscopy, laser lithotripsy, stent Cardiac History: HTN, Arrhythmia (afib s/p ablation), Other (PVD) Pulmonary History: Former smoker, COPD, RUBÉN Dx [employer] History: Denies Any Significant HX Other Medical History: Renal (JENN, stones), Diabetes Type II Anesthesia History: No Prior Anesthetic Complications, Past Anesthesia (LE bypass) Alcohol Use: none Drug use: none Medications and Allergies Aspirin Enteric Coated [Aspirin EC] 325 mg PO DAILY 07/23/15 [History] Atorvastatin [Lipitor] 20 mg PO HS 07/23/15 [History] Carvedilol 12.5 mg PO BID 07/23/15 [History] Cholestyramine 2 gm PO DAILY 07/23/15 [History] Lisinopril [Zestril] 10 mg PO DAILY 07/23/15 [History] Metformin HCl [Glucophage] 1,000 mg PO BID 07/23/15 [History] Diltiazem [Cardizem] 240 mg PO DAILY 09/16/16 [History] Gluc 2Kcl/Chondr/Padmini Hy/Hy AC [Glucosamine & Chondroitin Cap] 1,000 mg PO DAILY 09/16/16 [History] Cyanocobalamin/Folic Acid [Vitamin C26-Ntwcg Acid Tablet] 1,000 each PO DAILY [History] traZODone [TraZODone] 50 - 100 mg PO HS PRN 04/14/18 [History] 3 Allergy/AdvReac Type Severity Reaction Status Date / Time No Known Allergies Allergy Verified 04/13/18 20:41 - Meds/Allergy Pre-op Review Medications Reviewed: Yes Allergies Reviewed: Yes Beta Blockers on Current Med List: Yes If Beta Blockers taken, Date/Time (Last Dose taken): 04/14/18 1629 Anesthesia Results - Labs 04/14/18 02:52 04/14/18 02:52 Laboratory Tests 04/14/18 04/14/18 02:52 02:52 PT 13.0 H INR 1.2 APTT 32.4 Anesthesia Exam Vital Signs/O2 Sat, Most Current Temp Pulse Resp BP Pulse Ox 98.6 F 78 16 128/69 93 04/14/18 19:00 04/14/18 19:00 04/14/18 19:00 04/14/18 19:00 04/14/18 19:00 Weight: 111kg NPO (# of Hours): >8 - HEENT Pupil (Motor): Pupils equal, EOMI Mallampati: II Oral Opening: Greater than 3 - [employer] LOC: Oriented [employer] Motor: Normal RUE, Normal LUE, Normal RLE, Normal LLE, Normal Face [employer] Sensory: Normal: RUE, LUE, RLE, LLE, Face - Cardiac Rhythm: Irregular - Pulmonary Breath Sounds: bilateral Clear Respiratory Effort: Symmetrical Anesthesia Assess/Plan ASA Score: 3 (hx of afib, COPD, RUBÉN) Modified [place] Scale for Level of Consciousness: Cooperative, oriented, and tranquil Anesthetic Plan: General Monitoring Plan: Standard Monitors Recovery Plan: PACU
[2018-04-14] MEDS ORDERED: Lidocaine -MPF 2% 2 ML VIAL ONE (21:23)
[2018-04-14] MEDS ORDERED: *HR* Propofol 200 MG/20 ML VIAL IVP ONE (21:24)
[2018-04-14] MEDS ORDERED: *HR* FentaNYL (PF) 100 MCG/2 ML VIAL ONE (21:24)
--- NOTE | 2018-04-14 21:47 | Operative Note ---
Date of procedure: 04/14/18 Pre-op diagnosis: Left ureteral stone Post-op diagnosis: same Procedure: Left ureteroscopy laser lithotripsy, basket stone extraction and stent placement Implants: 6-Mauritian by 26 cm double-J stent Complications: None Anesthesia: BUBBAA Surgeon: Dante Hahn Was there an carpenter's assistant present: No Estimated blood loss (cc): 0 Specimen: Left ureteral stone Condition: stable Disposition: PACU Procedure in Detail: Indications: Mr. Solomon is a 67-year-old male who has a history of nephrolithiasis. He has a left proximal ureteral stone. He has not been able to pass this. He elected to undergo a left ureteroscopy, laser lithotripsy, and basket stone extraction with stent placement. He was aware of the risks of the procedure including but not limited to bleeding, infection, injury to other structures, need for further procedures, stent irritation, need for nephrostomy tube, need for open repair, risks otherwise unforeseen, and the risk of anesthesia. He is willing to proceed. Procedure in Detail: After informed consent was obtained the patient was brought back to the operating room and placed in supine position. A time out was performed. General anesthesia was administered and an LMA was placed. He was then placed in the lithotomy position. He was prepped and draped in the usual sterile fashion. Cystoscopy was performed. The anterior urethra was normal. There was no evidence of bladder tumors. The ureteral orifices were in the normal orthotopic position. There was no duplication of the ureteral orifices. The Zip wire was placed in the left ureteral orifice. The wire was then brought up into the kidney under fluoroscopic guidance. The ureter was dilated with the 8/10-Mauritian ureteral dilator. Semirigid ureteroscope was advanced up the ureter to the level of the stone. The stone was fragmented using the 200 micron laser fiber. The stone fragments were basket extracted. The ureteroscope was then removed and the pullout ureteroscopy showed no injury to the ureter. A 6 Mauritian by 26cm JJ stent was then placed. The dangle strings were removed. The patient was then awakened from general anesthesia and brought to recovery room in good condition. All sponge, needle, and instrument counts were correct.
[2018-04-14] MEDS ORDERED: Albuterol 2.5 MG/3 ML NEBULIZER ONE (22:15)
[2018-04-14] MEDS ORDERED: Ondansetron 4 MG/2 ML VIAL IVP ONE (22:22)
[2018-04-14] MEDS ORDERED: *HR* OxyCODONE Immed Rel 5 MG TABLET PO PRN (22:22)
[2018-04-14] MEDS ORDERED: *HR* Meperidine 25 MG/ML SYRINGE IVP PRN (22:22)
[2018-04-14] MEDS ORDERED: Albuterol 2.5 MG/3 ML NEBULIZER IH ONE (22:22)
[2018-04-14] MEDS ORDERED: Ipratropium Neb 0.5 MG NEBULIZER IH ONE (22:22)
[2018-04-14] MEDS ORDERED: Ringers Solution, Lactated 1,000 ML IVC SCH (22:30)
[2018-04-14] MEDS ORDERED: Ondansetron 4 MG/2 ML VIAL ONE (22:43)
[2018-04-14] MEDS ORDERED: Dexamethasone 4 MG/ML VIAL ONE (22:43)
--- NOTE | 2018-04-15 00:06 | Anesthesia Evaluation Post Op ---
Date of Encounter: 04/15/18 Time of Encounter: 00:05 - Vital Signs Vital Signs: Vital Signs/O2 Sat, Most Current Temp Pulse Resp BP Pulse Ox 99 F 85 17 163/67 91 04/15/18 00:04 04/15/18 00:04 04/15/18 00:04 04/15/18 00:04 04/15/18 00:04 - Lungs Lungs: Clear Ascult./Percussion - Airway Airway: Non-obstructed - Cardiovascular Regular Rate - Mental Status Mental Status: Alert & Oriented, Answers Appropriately, Baseline Status - Pain Pain Scale: 0 Pain Scale used: Numeric (1 - 10) - Nausea Vomiting Nausea Vomiting: Not Present - Hydration Hydration: NPO, Able to void - Discharge PostOp Status: Transfer Patient to floor
[2018-04-15] MEDS ORDERED: Dextrose Gel 15 GM/37.5 ML TUBE PO PRN ×2 (00:17)
[2018-04-15] MEDS ORDERED: Naloxone 0.4 MG/ML INJ IVP PRN (00:17)
[2018-04-15] MEDS ORDERED: 0.9 % Sodium Chloride 1,000 ML IVC SCH (00:17)
[2018-04-15] MEDS ORDERED: *HR* HYDROcodone/Acet 5/325 mg TABLET PO PRN (00:17)
[2018-04-15] MEDS ORDERED: Ondansetron 4 MG/2 ML VIAL IVP ONE (00:17)
[2018-04-15] MEDS ORDERED: D5% in Water 1,000 ML IVC PRN (00:17)
[2018-04-15] MEDS ORDERED: *HR* Dextrose 50 % in Water (Syg) 50 ML SYRINGE IVP PRN (00:17)
[2018-04-15] MEDS ORDERED: *HR* Promethazine 25 MG/ML VIAL IVP PRN (00:17)
[2018-04-15] MEDS ORDERED: OXYCODONE Oral CONC 10 MG/0.5 ML ORAL.SYG SL PRN (00:17)
[2018-04-15] MEDS: *HR* Heparin 5,000 UNIT/ML VIAL SQ SCH ×3 (05:28→20:47)
[2018-04-15 06:12] LABS: Basophils % 0.2 %; Eosinophils % 0.1 %; Hematocrit 40.6 % (37.5-50.1); Hemoglobin 13.2 g/dL (12.9-16.9); Immature Granulocytes % 0.5 % (0-4); Lymphocytes # 0.6 K/mcL (0.6-4.6); Lymphocytes % 6.3 %; Mean Corpuscular HGB Conc 32.5 g/dL (31.6-35.5); Mean Corpuscular Hemoglobin 28.3 pg (28.0-33.3); Mean Corpuscular Volume 86.9 fL (83.0-100.0); Mean Platelet Volume 10.1 fL (9.4-12.4); Monocytes # 0.4 K/mcL (0.0-1.3); Monocytes % 4.2 %; Neutrophils # 8.7 K/mcL (1.6-8.9); Platelet Count 144 K/mcL (140-400); Red Blood Count 4.67 M/mcL (4.19-5.50); Red Cell Distribution Width 14.3 % (11.5-14.5); Segmented Neutrophils % 88.7 %
[2018-04-15 06:34] LABS: Calcium 9.1 mg/dL (8.6-10.3); Potassium 4.5 mEq/L (3.5-5.1)
[2018-04-15] MEDS: Diltiazem CD (24hr) 240 MG CAPSULE PO SCH (08:23)
[2018-04-15] MEDS: Aspirin Enteric Coated 325 MG Tablet PO SCH (08:24)
[2018-04-15] MEDS: Insulin LISPRO 300 UNITS/3 ML VIAL SQ SCH ×3 (08:25→20:03)
--- NOTE | 2018-04-15 09:22 | Urology Progress Note ---
Date of Encounter: 04/15/18 Time of Encounter: 09:20 - Assessment and Plan (1) Left ureteral calculus Current Visit: Yes Status: Acute Assessment and plan: Patient is a 67 year old male who presents with a left ureteral stone and is one day status post left ureteroscopy laser lithotripsy, basket stone extraction and stent placement. Discussed home activities and follow up. Patient will follow up in office within 1-2 weeks for cystoscopy and stent removal. Progress Note Subjective: no new complaints, feels better Narrative: POD #1. Patient seen and examined sitting upright in bed in no apparent distress. Patient tolerating normal diet and voiding without difficulty. Denies significant pain, fever, chills, flank pain. Objective Initial Vital Signs Temp Pulse Resp BP Pulse Ox 98.1 F 85 18 174/74 96 04/13/18 20:39 04/13/18 20:39 04/13/18 20:39 04/13/18 20:39 04/13/18 20:39 - General physical appearance Present: well developed, no distress, no pain, obese - Respiratory Present: normal expansion, normal respiratory effort - Abdomen Present: soft, non tender - Integumentary Present: no rash, no abnormal pigmentation - Musculoskeletal Present: normal posture - Psychiatric Present: oriented to time, oriented to person, oriented to place, speech is normal, memory intact - Labs 04/15/18 05:49 04/15/18 05:49 Diabetes panel 04/15/18 Range/Units 05:49 Sodium 136 (136-145) mEq/L Potassium 4.5 (3.5-5.1) mEq/L Chloride 102 (98-107) mEq/L Carbon Dioxide 25 (23-29) mEq/L BUN 20 (8-23) mg/dL Creatinine 1.94 H (0.70-1.30) mg/dL Glucose 161 H (70-105) mg/dL Calcium 9.1 (8.6-10.3) mg/dL Calcium panel 04/15/18 Range/Units 05:49 Calcium 9.1 (8.6-10.3) mg/dL Pituitary panel 04/15/18 Range/Units 05:49 Sodium 136 (136-145) mEq/L Potassium 4.5 (3.5-5.1) mEq/L Chloride 102 (98-107) mEq/L Carbon Dioxide 25 (23-29) mEq/L BUN 20 (8-23) mg/dL Creatinine 1.94 H (0.70-1.30) mg/dL Glucose 161 H (70-105) mg/dL Calcium 9.1 (8.6-10.3) mg/dL Adrenal panel 04/15/18 Range/Units 05:49 Sodium 136 (136-145) mEq/L Potassium 4.5 (3.5-5.1) mEq/L Chloride 102 (98-107) mEq/L Carbon Dioxide 25 (23-29) mEq/L BUN 20 (8-23) mg/dL Creatinine 1.94 H (0.70-1.30) mg/dL Glucose 161 H (70-105) mg/dL Calcium 9.1 (8.6-10.3) mg/dL Consult Discharge Plan - Plan Referrals: Nael Lora MD [Primary Care Provider] -
[2018-04-15] MEDS: 0.9 % Sodium Chloride 1,000 ML IVC SCH (12:09)
--- NOTE | 2018-04-15 13:01 | Internal Med Progress Note ---
Hospitalist Progress Note - Encounter Date of Encounter: 04/15/18 Time of Encounter: 13:00 - Subjective Interval History: Patient was seen and examined at bedside. Currently denies any pain or discomfort. - Exam Vitals: Temp Pulse Resp BP Pulse Ox 97.9 F 69 16 110/66 91 04/15/18 12:01 04/15/18 12:01 04/15/18 12:01 04/15/18 12:01 04/15/18 12:01 Exam: General: pleasant,cooperative HEENT: Head atraumatic, normocephalic, EOMI, PERRL, absent ear discharge or trauma, Moist Mucous Membranes, uvula midline Neck: nontender to palpation, absent lymphadenopathy, Cardiovascualr: Regular rate and rhythm with no murmur, absent gallops or rubs, absent pedal edema, radial pulses 2 out of 4 Lungs: Clear to auscultation bilaterally, not in respiratory distress Abdomen: Soft tender LLQ, nondistended positive bowel sounds, Skin: warm and dry, absent rash, absent open wounds and nodules MSK: absent clubbing, cyanosis, joints without swelling Neuro: Cranial nerves II through XII intact, UE and LE sensation equal bilaterally, UE and LEstrength 5/5, alert oriented 3, Psych: good insight and judgment, - Assessment and Plan (1) JENN (acute kidney injury) Current Visit: Yes Status: Acute Assessment and Plan: 2nd to obstructive uropathy- improving jenn on ckd3 -improving creatinine 1.94 this morning looks like his baseline is between 1.3-1.7 IVF continued monitor BMP (2) Obstructive nephropathy Current Visit: Yes Status: Acute Assessment and Plan: 5mm renal stone in the left ureter with hydrouretonephrosis as per CT abdomen/ pelvis afebrile, white count 11.7-on presentation template for today patient has hx of nephrolithiasis and followed by urology-urology has been consulted patient - left ureteroscopy laser lithotripsy and stent placement - tolerated procedure well Continue IV fluids, flomax, pain control, phenergan prn for nasuea, npo, (3) Nephrolithiasis Current Visit: Yes Status: Chronic (4) Atrial fibrillation Current Visit: Yes Status: Acute Assessment and Plan: hx of afib controlled rate continue cardizem and carvedilol Will resume Xarelto (5) Diabetes mellitus Current Visit: Yes Status: Acute Assessment and Plan: hx of DM2 non-insulin dependent start low dose SSI NPO accuchecks AC/HS (6) Hx of essential hypertension Current Visit: Yes Status: Acute Assessment and Plan: controlled continue carvedilol - Time Spent with Patient Total time spent is greater than 50% in coordination of care (as documented) at patient's floor/unit and/or counseling patient: Internal Medicine: Result - Labs CBC & Chem 7: 04/15/18 05:49 04/15/18 05:49 Labs: Short CBC 04/15/18 Range/Units 05:49 WBC 9.8 (4.3-11.1) K/mcL Hgb 13.2 (12.9-16.9) g/dL Hct 40.6 (37.5-50.1) % Plt Count 144 (140-400) K/mcL Neutrophils # 8.7 (1.6-8.9) K/mcL BMP 04/15/18 05:49 Sodium 136 Potassium 4.5 Chloride 102 Carbon Dioxide 25 BUN 20 Creatinine 1.94 H Glucose 161 H Calcium 9.1 - ABG Interpretation ABG results: PT/INR, D-dimer PT 13.0 Seconds (9.4-12.1) H 04/14/18 02:52 - Impressions Impressions Fluoroscopy 04/14/18 22:30 IMPRESSION: Intraop procedural images during left ureteral stent placement. See procedure note for further details. D/ / Ilsa Mckeon Cha, MD / Ilsa Mckeon Cha, MD Interpreting Provider: Ilsa Mckeon Cha, MD Consult Discharge Plan - Plan Referrals: Nael Lora MD [Primary Care Provider] - (4) Atrial fibrillation Qualifiers: Atrial fibrillation type: unspecified Qualified Code(s): I48.91 - Unspecified atrial fibrillation (5) Diabetes mellitus Qualifiers: Diabetes mellitus type: type 2 Diabetes mellitus detention insulin use: without detention use Diabetes mellitus complication status: without complication Qualified Code(s): E11.9 - Type 2 diabetes mellitus without complications
[2018-04-16] MEDS: Insulin LISPRO 300 UNITS/3 ML VIAL SQ SCH ×2 (00:02→07:39)
[2018-04-16] MEDS: 0.9 % Sodium Chloride 1,000 ML IVC SCH (04:22)
[2018-04-16 05:45] LABS: Basophils % 0.4 %; Eosinophils # 0.1 K/mcL (0.0-0.6); Eosinophils % 1.7 %; Hematocrit 36.1 % (37.5-50.1); Hemoglobin 11.8 g/dL (12.9-16.9); Immature Granulocytes % 0.4 % (0-4); Lymphocytes # 1.8 K/mcL (0.6-4.6); Mean Corpuscular HGB Conc 32.7 g/dL (31.6-35.5); Mean Corpuscular Hemoglobin 28.4 pg (28.0-33.3); Mean Platelet Volume 10.9 fL (9.4-12.4); Monocytes # 0.6 K/mcL (0.0-1.3); Monocytes % 8.1 %; Neutrophils # 4.9 K/mcL (1.6-8.9); Platelet Count 147 K/mcL (140-400); Red Blood Count 4.15 M/mcL (4.19-5.50); Red Cell Distribution Width 14.3 % (11.5-14.5); Segmented Neutrophils % 65.4 %
[2018-04-16 05:58] LABS: Calcium 8.8 mg/dL (8.6-10.3); Potassium 4.1 mEq/L (3.5-5.1)
[2018-04-16 06:53] VITALS: BP 119/69
[2018-04-16] MEDS: *HR* Heparin 5,000 UNIT/ML VIAL SQ SCH (07:38)
[2018-04-16] MEDS: Aspirin Enteric Coated 325 MG Tablet PO SCH (07:40)
[2018-04-16] MEDS: Diltiazem CD (24hr) 240 MG CAPSULE PO SCH (07:40)
--- NOTE | 2018-04-16 07:53 | Discharge Summary ---
Orders not resulted at time of discharge: Pending orders 04/14/18 22:30 XR KUB [XR] Routine 04/14/18 23:11 Calculi (stone) Analysis Routine Surgical Pathology [PTH] Routine Date of Encounter: 04/16/18 Time of Encounter: 07:53 - Discharge Diagnosis (1) JENN (acute kidney injury) Priority: Secondary Status: Acute (2) Obstructive nephropathy Priority: Primary Status: Acute (3) Nephrolithiasis Priority: Primary Status: Chronic (4) Atrial fibrillation Priority: Secondary Status: Acute Qualifiers: Atrial fibrillation type: unspecified Qualified Code(s): I48.91 - Unspecified atrial fibrillation (5) Diabetes mellitus Priority: Secondary Status: Acute Qualifiers: Diabetes mellitus type: type 2 Diabetes mellitus senior living insulin use: without terminal superintendent use Diabetes mellitus complication status: without complication Qualified Code(s): E11.9 - Type 2 diabetes mellitus without complications (6) Hx of essential hypertension Priority: Secondary Status: Acute Hospital course: Mr. Solomon is a 67 year old male past medical hx of a fib with ablation DM htn kidney stones. He was DX with kidney stone 2 months ago , pain worsened over 2 days. He presented to ED and was found to have JENN -abd CT did show 5 mm obstructing stone in the mid left ureter with mild upstream hydroureteronephrosis. Additional nonobstructive left intrarenal stones are present. Urology was consulted and patient underwent left ureteroscopy laser lithotripsy, basket stone extraction and stent placement. He tolerated procedure well. He cont to have elevation in creatinine He did receive IVF overnight and his creatinine did improve. Advised the patient to follow up with urology in 1 week for cystoscopy and stent removal . I did give him a prescription for flomax. He is hemodynamically stable and ready for discharge Discharge discussed with: patient - Time Spent with Patient Total time spent providing and/or coordinating discharge services: - Discharge Medications Prescriptions: Tamsulosin [Flomax] 0.4 mg PO HS #30 capsule Home Medications: Aspirin Enteric Coated [Aspirin EC] 325 mg PO DAILY 07/23/15 [History] Atorvastatin [Lipitor] 20 mg PO HS 07/23/15 [History] Carvedilol 12.5 mg PO BID 07/23/15 [History] Cholestyramine 2 gm PO DAILY 07/23/15 [History] Lisinopril [Zestril] 10 mg PO DAILY 07/23/15 [History] Metformin HCl [Glucophage] 1,000 mg PO BID 07/23/15 [History] Diltiazem [Cardizem] 240 mg PO DAILY 09/16/16 [History] Gluc 2Kcl/Chondr/Padmini Hy/Hy AC [Glucosamine & Chondroitin Cap] 1,000 mg PO DAILY 09/16/16 [History] Cyanocobalamin/Folic Acid [Vitamin M20-Xlyan Acid Tablet] 1,000 each PO DAILY [History] traZODone [TraZODone] 50 - 100 mg PO HS PRN 04/14/18 [History] Tamsulosin [Flomax] 0.4 mg PO HS #30 capsule 04/16/18 [Rx] Allergies/Adverse Reactions: 3 Allergy/AdvReac Type Severity Reaction Status Date / Time No Known Allergies Allergy Verified 04/13/18 20:41 Date of admission: 04/14/18 19:30 Primary care physician: Nael Lora MD Discharging clinician: Arlen Dudley Anticipated date of discharge: 04/16/18 - Constitutional Vitals: Temp Pulse Resp BP Pulse Ox 97.7 F 60 17 119/69 94 04/16/18 06:51 04/16/18 06:51 04/16/18 06:51 04/16/18 06:51 04/16/18 06:51 General appearance: Present: A&O X 3 Exam: General: pleasant,cooperative HEENT: Head atraumatic, normocephalic, EOMI, PERRL, absent ear discharge or trauma, Moist Mucous Membranes, uvula midline Neck: nontender to palpation, absent lymphadenopathy, Cardiovascualr: Regular rate and rhythm with no murmur, absent gallops or rubs, absent pedal edema, radial pulses 2 out of 4 Lungs: Clear to auscultation bilaterally, not in respiratory distress Abdomen: Soft tender LLQ, nondistended positive bowel sounds, Skin: warm and dry, absent rash, absent open wounds and nodules MSK: absent clubbing, cyanosis, joints without swelling Neuro: Cranial nerves II through XII intact, UE and LE sensation equal bilaterally, UE and LEstrength 5/5, alert oriented 3, Psych: good insight and judgment, - Head Head exam: Present: atraumatic, normocephalic - Eye Eye exam: Present: PERRL, conjuntiva pink, sclera anicteric Pupils: Present: PERRL - Neck Neck exam general surgery: Present: supple, trachea midline. Absent: lymphadenopathy - Respiratory Respiratory exam: Present: CTAB. Absent: accessory muscle use, rales, rhonchi, wheezes - Cardiovascular Cardiovascular exam: Present: RRR, +S1, +S2. Absent: diastolic murmur, gallop, rubs, systolic murmur - GI/Abdominal GI/Abdominal exam: Present: normal bowel sounds, soft, no peritoneal signs. Absent: distended, tenderness - Extremities Exam Extremities exam: Present: warm, radial pulses palpable and symmetrical. Absent : calf tenderness, cyanotic, pedal edema - Neurological Exam Neurological exam: Present: CN II-XII intact, oriented X3, no focal deficits. Absent: pronater drift, facial droop, speech deficit - Skin Skin exam: Present: dry, intact - Patient Status Disposition: Home, Self-Care Condition: Fair Functional capacity at discharge: independent ambulation Overall status at discharge: patient is back to baseline - Discharge Instructions Instructions: Diabetes Mellitus Type 2 in Adults (DC) Follow Up With: Nael Lora MD [Primary Care Provider] - - Diet and Activity Activity: increase activity as tolerated Diet: advance to your usual diet
[2018-04-18 22:35] LABS: Calculi Mass 16 mg
== END 2018-04-16 10:15 | disposition home or self-care (01) | DRG 669 ==
LOC: EMEROOARM 20:37 → 3BNU 20:37
PROVIDERS: ADMIT Family Medicine; ATTEND Family Medicine

== ENCOUNTER 2019-04-22 00:40 | Inpatient (IN) ==
[2019-04-22] MEDS ORDERED: Ondansetron 4 MG/2 ML VIAL IVP ONE (02:16)
[2019-04-22] MEDS ORDERED: Ondansetron 4 MG/2 ML VIAL ONE (02:27)
[2019-04-22] MEDS ORDERED: Isovue-370 500 ML BOTTLE IVP ONE (02:32)
[2019-04-22 02:40] LABS: Basophils # 0.1 K/mcL (0.0-0.2); Basophils % 0.4 %; Eosinophils # 0.3 K/mcL (0.0-0.6); Eosinophils % 2.2 %; Hematocrit 36.3 % (37.5-50.1); Hemoglobin 11.7 g/dL (12.9-16.9); Immature Granulocytes % 0.6 % (0-4); Lymphocytes # 1.1 K/mcL (0.6-4.6); Lymphocytes % 7.9 %; Mean Corpuscular HGB Conc 32.2 g/dL (31.6-35.5); Mean Corpuscular Hemoglobin 30.2 pg (28.0-33.3); Mean Corpuscular Volume 93.6 fL (83.0-100.0); Mean Platelet Volume 10.4 fL (9.4-12.4); Monocytes # 0.7 K/mcL (0.0-1.3); Monocytes % 5.5 %; Neutrophils # 11.3 K/mcL (1.6-8.9); Platelet Count 250 K/mcL (140-400); Red Blood Count 3.88 M/mcL (4.19-5.50); Red Cell Distribution Width 17.4 % (11.5-14.5); Segmented Neutrophils % 83.4 %; White Blood Count 13.5 K/mcL (4.3-11.1)
--- NOTE | 2019-04-22 02:48 | Emergency Department Note ---
Disposition Clinical Impression: Colitis, Ileus Disposition: Admitted As Inpatient Condition: Good Referrals: Nael Lora MD [Primary Care Provider] - Forms: ED Satisfaction Letter Time of Disposition: 04:40 Abdominal Pain HPI - General Chief Complaint: ED Nausea/Vomiting/Diarrhea Stated Complaint: N/V s/p appy Time Seen by Provider: 04/22/19 01:26 Source: patient, family Nursing Notes Reviewed: Yes Vital Signs Reviewed: Yes - History of Present Illness HPI Narrative: 68-year-old male presents with complaint of nausea, vomiting, abdominal pain. He is accompanied by his family members who assist with history. Patient and family mention patient had a laparoscopic converted to open appendectomy [address] Rosales at [facility] area he was recovering nicely, up until approximately 3 days ago, when he had noticed decreased bowel movements, and gradually worsening abdominal pain nausea vomiting. He does describe his last bowel movement that was normal was approximately 5 or 6 days ago, he did have a small bowel movement approximate 4 days ago. He does describe increased belching flatulence. Patient family mention patient has been diagnosed with lung cancer, and has undergone chemotherapy. During evaluation for his lung cancer, he was found to have appendicitis. Patient denies any anticoagulant use. He denies any chest pain, hemoptysis, shortness of breath, fever, leg pain. Pain Scale: 4 - Related Data Home Medications Medication Instructions Recorded Confirmed Atorvastatin [Lipitor] 20 mg PO HS 07/23/15 04/22/19 Carvedilol 12.5 mg PO BID 07/23/15 04/22/19 Diltiazem [Cardizem] 240 mg PO DAILY 09/16/16 04/22/19 Cyanocobalamin/Folic Acid [Vitamin 1,000 each PO DAILY 04/14/18 04/22/19 Q15-Swlml Acid Tablet] traZODone [TraZODone] 50 - 100 mg PO HS PRN 04/14/18 04/22/19 Allergies Allergy/AdvReac Type Severity Reaction Status Date / Time No Known Allergies Allergy Verified 04/13/18 20:41 All systems ED: reviewed and negative except as stated. Review of Systems: As Per HPI Constitutional: Denies: fever, chills, weakness Eyes: Denies: vision change ENT ED: Denies: throat pain Cardiovascular: Denies: chest pain, palpitations Respiratory: Denies: dyspnea Gastrointestinal: Reports: as per HPI Genitourinary: Denies: dysuria Musculoskeletal: Denies: back pain Integumentary: Denies: rash Neurological: Denies: headache, weakness, numbness, paresthesias Endocrine: Denies: fatigue Hematological/Lymphatic: Denies: lymphadenopathy Allergic/Immunologic: Denies: facial swelling Abdominal Pain PMH - Past Medical History Medical history: Reports: arthritis, atrial fibrillation, cancer, COPD, diabetes, hypertension, kidney stones Male Surgical History: Reports: carotid endarterectomy, cholecystectomy, other Psychiatric history: Reports: no psych history - Social History Smoking status: Former smoker Alcohol use: Reports: none Drug use: Reports: none Physical Exam - General Limitations: no limitations General appearance: alert, in no apparent distress - Head Head exam: normocephalic - Eye Eye exam: Present: normal appearance, EOMI - ENT ENT exam: mucous membranes moist - Neck Neck exam: Present: full ROM - Chest Chest inspection: Present: symmetric chest wall rise - Respiratory Respiratory exam: Absent: respiratory distress - Cardiovascular Cardiovascular exam: Present: regular rate - Abdominal Exam Abdominal exam: Present: soft, tenderness, distention, hyperactive bowel sounds, incision, other (eccymosis). Absent: guarding, rebound, psoas sign, hernia - Extremities Exam Extremities exam: Present: normal inspection, full ROM, normal capillary refill - Back Exam Back exam: Present: full ROM - Neurological Exam Neurological exam: Present: alert - Psychiatric Psychiatric exam: Present: normal affect, normal mood - Skin Skin exam: Present: warm, dry, intact, normal color. Absent: rash, cyanosis, diaphoresis Course Course Narrative: 68-year-old male presents with complaint of nausea, vomiting, abdominal pain. He is accompanied by his family members who assist with history. Patient and family mention patient had a laparoscopic converted to open appendectomy accident [address] Rosales at [facility] area he was recovering nicely, up until approximately 3 days ago, when he had noticed decreased bowel movements, and gradually worsening abdominal pain nausea vomiting. He does describe his last bowel movement that was normal was approximately 5 or 6 days ago, he did have a small bowel movement approximate 4 days ago. He does describe increased belching flatulence. Patient family mention patient has been diagnosed with lung cancer, and has undergone chemotherapy. During evaluation for his lung cancer, he was found to have appendicitis. Patient denies any anticoagulant use. He denies any chest pain, hemoptysis, shortness of breath, fever, leg pain. Patient seen and examined. he is alert appears uncomfortable. Noted surgical citizens across his abdomen. On his lower left abdomen, and degree of ecchymosis. Somewhat distended tender, hyperactive bowel sounds. No flank pain. No lower extremity edema. Lungs clear to auscultation. Heart regular rate and rhythm. Considering SBO. Antiemetics ordered. Analgesics ordered. Workup initiated. We will plan for CT scan. - Reevaluation(s) Reevaluation #1: CT scan results reviewed, concerning for colitis, reactive ileus. She did respond well to antiemetics and analgesics is resting complaint exam bed. Discussed patient with Dr. Lara also had face time with patient. Advise patient be evaluated by his surgical team at [facility]. Patient agreeable to this. We will plan transfer. [facility] paged. Time: 04:39 Reevaluation #2: Disposition office were discussed with patient and family, regarding my discussion with Dr. Rosales. At this time patient is preferring to stay here at [place]. We will contact hospitalist for admission for observation and medical management. @05:32 patient was discussed with hospitalist Dr. Ashford, who agreed to accept patient if surgery would consult. I spoke with Dr. Ranjan Lora who agreed to consult. Patient accepted to hospitalist. Time: 05:02 - Consultations Consultation #1: Patient was discussed with his [facility] surgeon Dr. Rosales. He mentions he feels this is unlikely to be a surgical intervention needed, he had recommended observation here with possible NG tube decompression. Alternatively, he mentioned that [facility]. Time: 05:00 Consultation #2: template reproduction technician [place] surgically this was paged and I discussed patient with Dr. Ranjan Lora, who agreed to see patient. Time: 05:30 Vital Signs Temperature 98.1 F 04/22/19 01:00 Pulse Rate 70 04/22/19 01:00 Respiratory Rate 17 04/22/19 01:00 Blood Pressure 131/68 04/22/19 01:00 O2 Sat by Pulse Oximetry 99 04/22/19 01:00 Temperature 98.1 F 04/22/19 01:00 Pulse Rate 65 04/22/19 05:08 Respiratory Rate 14 04/22/19 05:08 Blood Pressure 105/65 04/22/19 05:08 O2 Sat by Pulse Oximetry 97 04/22/19 05:08 Oxygen Delivery Oxygen Delivery Room Air Abdominal Pain - MDM Narrative Medical decision making narrative: Abdomen/Pelvis CT 04/22/19 04:08 IMPRESSION: Undifferentiated colitis involving the ascending and proximal transverse colon. Favor infectious or inflammatory etiologies given apparent patency of the abdominal aortic visceral arterial branch vessels. Surrounding inflammatory stranding and fluid without evidence of perforation. Probably a reactive ileus involving several loops of small bowel. Bilateral nonobstructive nephrolithiasis. Areas of decreased enhancement at the renal superior poles is likely due to clusters of small cysts which are too small to characterize as opposed to pyelonephritis or less likely infarct. Mild perivesicular fat stranding. Consider correlation with urinalysis. D/ / Subhash Mascorro / Subhash Mascorro Interpreting Provider: Subhash Mascorro - Lab Data Lab results reviewed: Yes I reviewed the patient's lab results. Result diagrams: 04/22/19 01:26 04/22/19 01:26 Lab Results 04/22/19 04/22/19 Range/Units 01:26 01:26 WBC 13.5 H (4.3-11.1) K/mcL RBC 3.88 L (4.19-5.50) M/mcL Hgb 11.7 L (12.9-16.9) g/dL Hct 36.3 L (37.5-50.1) % MCV 93.6 (83.0-100.0) fL MCH 30.2 (28.0-33.3) pg MCHC 32.2 (31.6-35.5) g/dL RDW 17.4 H (11.5-14.5) % Plt Count 250 (140-400) K/mcL MPV 10.4 (9.4-12.4) fL Immature Gran % 0.6 (0-4) % Seg Neutrophils % 83.4 % Lymphocytes % 7.9 % Monocytes % 5.5 % Eosinophils % 2.2 % Basophils % 0.4 % Neutrophils # 11.3 H (1.6-8.9) K/mcL Lymphocytes # 1.1 (0.6-4.6) K/mcL Monocytes # 0.7 (0.0-1.3) K/mcL Eosinophils # 0.3 (0.0-0.6) K/mcL Basophils # 0.1 (0.0-0.2) K/mcL Sodium 136 (136-145) mEq/L Potassium 4.0 (3.5-5.1) mEq/L Chloride 98 (98-107) mEq/L Carbon Dioxide 28 (23-29) mEq/L BUN 19 (8-23) mg/dL Creatinine 1.03 (0.70-1.30) mg/dL Est GFR ( Amer) > 60 (> 60) Est GFR (Non-Af Amer) > 60 (> 60) BUN/Creatinine Ratio 18 (6-26) Glucose 116 H (70-105) mg/dL Calculated Osmolality 285 (280-300) Calcium 9.6 (8.6-10.3) mg/dL Total Bilirubin 1.1 H (0.3-1.0) mg/dL Direct Bilirubin 0.3 H (0.0-0.2) mg/dL Indirect Bilirubin 0.8 (0.0-1.2) mg/dL AST 44 H (13-39) Units/L ALT 41 (7-52) Units/L Alkaline Phosphatase 205 H (34-104) Units/L Serum Total Protein 7.7 (6.4-8.9) g/dL Albumin 4.3 (3.5-5.7) g/dL Globulin 3.4 (2.4-3.5) g/dL Albumin/Globulin Ratio 1.3 (1.1-2.2) Lipase 37 (11-82) Units/L - Radiology Data Radiology results reviewed: Yes I reviewed the patient's radiology results.
[2019-04-22] MEDS ORDERED: *HR* HYDROmorphone (PF) 1 MG/ML SYRINGE IVP ONE (02:50)
[2019-04-22 02:53] LABS: Alanine Aminotransferase 41 Units/L (7-52); Albumin 4.3 g/dL (3.5-5.7); Albumin/Globulin Ratio 1.3 (1.1-2.2); Alkaline Phosphatase 205 Units/L (34-104); Aspartate Amino Transferase 44 Units/L (13-39); BUN/Creatinine Ratio 18 (6-26); Bilirubin,Direct 0.3 mg/dL (0.0-0.2); Bilirubin,Indirect 0.8 mg/dL (0.0-1.2); Bilirubin,Total 1.1 mg/dL (0.3-1.0); Blood Urea Nitrogen 19 mg/dL (8-23); Calcium 9.6 mg/dL (8.6-10.3); Carbon Dioxide 28 mEq/L (23-29); Chloride 98 mEq/L (98-107); Globulin 3.4 g/dL (2.4-3.5); Glucose 116 mg/dL (70-105); Lipase 37 Units/L (11-82); Osmolality,Calculated 285 (280-300); Sodium 136 mEq/L (136-145); Total Protein 7.7 g/dL (6.4-8.9); eGFR For African Americans > 60 (> 60); eGFR For Non-African Americans > 60 (> 60)
--- NOTE | 2019-04-22 03:23 | Emergency Department Note ---
Disposition Clinical Impression: Colitis, Ileus, Status post appendectomy Disposition: Admitted As Inpatient Condition: Good Time of Disposition: 05:50 General Adult HPI - General Chief complaint: ED Nausea/Vomiting/Diarrhea Stated complaint: N/V s/p appy Time Seen by Provider: 04/22/19 01:26 Source: patient, family Limitations: no limitations Nursing Notes Reviewed: Yes Vital Signs Reviewed: Yes - History of Present Illness HPI Narrative: 68-year-old man who has 2-3 weeks postop from appendectomy. He presents pointing of abdominal pain. states he had some loud bowel sounds. Patient denies any fevers. The pain has been present gradually getting worse. Please see nurse practitioner's note to correlate with this one for full history of physical and disposition. Pain Severity: moderate Pain Scale: 4 Quality: aching, dull Consistency: constant, Worsening Improves with: nothing Worsens with: movement Associated symptoms: Reports: loss of appetite, nausea/vomiting. Denies: confusion, malaise, rash, seizure - Related Data Home Medications Medication Instructions Recorded Confirmed Atorvastatin [Lipitor] 20 mg PO HS 07/23/15 04/22/19 Carvedilol 12.5 mg PO BID 07/23/15 04/22/19 Cyanocobalamin/Folic Acid [Vitamin 1,000 each PO DAILY 04/14/18 04/22/19 [id number] Acid Tablet] traZODone [TraZODone] 50 - 100 mg PO HS PRN 04/14/18 04/22/19 Diltiazem CD (24hr) [Cardizem CD] 240 mg PO DAILY 04/22/19 04/22/19 Allergies Allergy/AdvReac Type Severity Reaction Status Date / Time No Known Allergies Allergy Verified 04/13/18 20:41 All systems ED: reviewed and negative except as stated. Constitutional: Denies: fever, chills, weakness Eyes: Denies: vision change ENT ED: Denies: throat pain Cardiovascular: Denies: chest pain, palpitations Respiratory: Denies: dyspnea Gastrointestinal: Reports: as per HPI Genitourinary: Denies: dysuria Musculoskeletal: Denies: back pain Integumentary: Denies: rash Neurological: Denies: headache, weakness, numbness, paresthesias Endocrine: Denies: fatigue Hematological/Lymphatic: Denies: lymphadenopathy Allergic/Immunologic: Denies: facial swelling Past Medical History - Past Medical History Attestation: Yes The following information was validated with the patient. Source: patient, old records reviewed, obtained from family, nursing notes reviewed Medical history: Reports: arthritis, atrial fibrillation, cancer, COPD, diabetes , hypertension, kidney stones Surgical history: Reports: cholecystectomy, orthopedic, other, vascular surgery Psychiatric history: Reports: no psych history - Social History Smoking Status: Former smoker Smokeless Tobacco Status: No Alcohol use: Reports: none Drug use: Reports: none Physical Exam - General Limitations: no limitations General appearance: alert, in no apparent distress - Head Head exam: atraumatic, normocephalic, normal inspection - Eye Eye exam: Present: normal appearance, PERRL, EOMI - ENT ENT exam: normal exam, normal oropharynx, mucous membranes moist - Chest Chest inspection: Present: normal inspection, symmetric chest wall rise - Respiratory Respiratory exam: Present: normal lung sounds bilaterally. Absent: respiratory distress, wheezes - Cardiovascular Cardiovascular exam: Present: regular rate, normal rhythm, normal heart sounds - Abdominal Exam Abdominal exam: Present: soft, tenderness (Generalized.), hyperactive bowel sounds. Absent: distention, guarding, rebound, rigidity - Extremities Exam Extremities exam: Present: normal inspection, full ROM, normal capillary refill. Absent: tenderness, pedal edema - Back Exam Back exam: Present: normal inspection, full ROM. Absent: tenderness, CVA tenderness (R), CVA tenderness (L) - Neurological Exam Neurological exam: Present: alert, oriented X3, CN II-XII intact - Psychiatric Psychiatric exam: Present: normal affect, normal mood - Skin Skin exam: Present: warm, dry, intact, normal color Course Course Narrative: Patient was seen in conjunction with nurse practitioner Meli RICE please see his note for complete H&P and disposition. Patient is approximately [address] scan was reviewed and demonstrated ileus with colitis. Antibiotics were started. Initially, the case was discussed and we spoke with the covering physician that performed the surgery. He felt that the patient could be treated here. We do not necessarily disagree. We will speak to the hospitalist as well as the surgeon. did accept with a consult to the general surgeon. Patient remain in fair and stable condition. Vital Signs Temperature 98.1 F 04/22/19 01:00 Pulse Rate 70 04/22/19 01:00 Respiratory Rate 17 04/22/19 01:00 Blood Pressure 131/68 04/22/19 01:00 O2 Sat by Pulse Oximetry 99 04/22/19 01:00 Temperature 97.8 F 04/22/19 20:21 Pulse Rate 64 04/22/19 20:21 Respiratory Rate 15 04/22/19 20:21 Blood Pressure 127/58 04/22/19 20:21 O2 Sat by Pulse Oximetry 97 04/22/19 20:21 Oxygen Delivery Oxygen Delivery Room Air Medical Decision Making - Lab Data Result diagrams: 04/22/19 01:26 04/22/19 01:26 Lab Results 04/22/19 04/22/19 Range/Units 01:26 01:26 WBC 13.5 H (4.3-11.1) K/mcL RBC 3.88 L (4.19-5.50) M/mcL Hgb 11.7 L (12.9-16.9) g/dL Hct 36.3 L (37.5-50.1) % MCV 93.6 (83.0-100.0) fL MCH 30.2 (28.0-33.3) pg MCHC 32.2 (31.6-35.5) g/dL RDW 17.4 H (11.5-14.5) % Plt Count 250 (140-400) K/mcL MPV 10.4 (9.4-12.4) fL Immature Gran % 0.6 (0-4) % Seg Neutrophils % 83.4 % Lymphocytes % 7.9 % Monocytes % 5.5 % Eosinophils % 2.2 % Basophils % 0.4 % Neutrophils # 11.3 H (1.6-8.9) K/mcL Lymphocytes # 1.1 (0.6-4.6) K/mcL Monocytes # 0.7 (0.0-1.3) K/mcL Eosinophils # 0.3 (0.0-0.6) K/mcL Basophils # 0.1 (0.0-0.2) K/mcL Sodium 136 (136-145) mEq/L Potassium 4.0 (3.5-5.1) mEq/L Chloride 98 (98-107) mEq/L Carbon Dioxide 28 (23-29) mEq/L BUN 19 (8-23) mg/dL Creatinine 1.03 (0.70-1.30) mg/dL Est GFR ( Amer) > 60 (> 60) Est GFR (Non-Af Amer) > 60 (> 60) BUN/Creatinine Ratio 18 (6-26) Glucose 116 H (70-105) mg/dL Calculated Osmolality 285 (280-300) Calcium 9.6 (8.6-10.3) mg/dL Total Bilirubin 1.1 H (0.3-1.0) mg/dL Direct Bilirubin 0.3 H (0.0-0.2) mg/dL Indirect Bilirubin 0.8 (0.0-1.2) mg/dL AST 44 H (13-39) Units/L ALT 41 (7-52) Units/L Alkaline Phosphatase 205 H (34-104) Units/L Serum Total Protein 7.7 (6.4-8.9) g/dL Albumin 4.3 (3.5-5.7) g/dL Globulin 3.4 (2.4-3.5) g/dL Albumin/Globulin Ratio 1.3 (1.1-2.2) Lipase 37 (11-82) Units/L
--- NOTE | 2019-04-22 06:31 | AcuteCare Surgery Consult Note ---
Date of Encounter: 04/22/19 Time of Encounter: 06:30 Assessment and Plan (1) Colitis Current Visit: Yes Status: Acute Recommend IV abx, NPO for bowel rest and IVF. Will follow. (2) Ileus Current Visit: Yes Status: Acute Will resolve when colitis resolves. Continue bowel rest. (3) Atrial fibrillation Current Visit: No Status: Acute Qualifiers: Atrial fibrillation type: unspecified Qualified Code(s): I48.91 - Unspecified atrial fibrillation (4) Diabetes mellitus Current Visit: No Status: Acute Qualifiers: Diabetes mellitus type: type 2 Diabetes mellitus manager intermediate insulin use: without custodial use Diabetes mellitus complication status: without complication Qualified Code(s): E11.9 - Type 2 diabetes mellitus without complications (5) Hx of essential hypertension Current Visit: No Status: Acute History of Present Illness Consult date: 04/22/19 Reason for consult: abdominal pain Requesting physician: Bruce Ashford History of present illness: This 68 y/o male pt presents to [facility] ED c/o severe abdominal pain. Pt reports pain is predominantly in midabdomen. Pain radiates to BLQ. However, pt also reports that he had an appendectomy 2 weeks ago at [facility]. Pt reports pain has been present for 3 days. He states that the chronic, intermittent low grade pain worsened to the point of intolerence today. Now, the pain is constant and severe. Pt reports nausea and vomiting. Pt denies hematemesis or coffee ground emesis. Pt reports flatus and BM. BM have become loose today. Pt denies hematochezia or melena. Reports decreased appetite. Denies fever. Past Med Surg Social Fam HX - Past Medical History Medical history: arthritis, atrial fibrillation, cancer, COPD, diabetes, hypertension, kidney stones Additional medical history: shingles, RUBÉN w/ cpap, aflutter, lung cancer (small cell) Psychiatric history: no psych history - Past Surgical History Surgical History: cholecystectomy, orthopedic, other, vascular surgery Additional surgical history: ablasion, iliac stent, EGD/Colonoscopy, CEA, hernia repair with mesh, compartment syndrome - Social History Smoking Status: Former smoker Smokeless Tobacco Status: No Alcohol use: none Drug use: none - Family History Father Hx Family Cardiac Disorders: Yes (cabg) Hx Family Endocrine Disorder: Yes (DM) Brother Hx Family Cardiac Disorders: Yes (PAD, carotid artherosclerotic disease) Medications and Allergies Atorvastatin [Lipitor] 20 mg PO HS 07/23/15 [History] Carvedilol 12.5 mg PO BID 07/23/15 [History] Diltiazem [Cardizem] 240 mg PO DAILY 09/16/16 [History] Cyanocobalamin/Folic Acid [Vitamin H03-Lwwbe Acid Tablet] 1,000 each PO DAILY 04/14/18 [History] traZODone [TraZODone] 50 - 100 mg PO HS PRN 04/14/18 [History] Allergy/AdvReac Type Severity Reaction Status Date / Time No Known Allergies Allergy Verified 04/13/18 20:41 Review of Systems All systems PM: The remainder of the systems were reviewed and are negative - Constitutional fatigue, weakness, no anorexia, no chills, no fever(s), no night sweats - EENT Nose, mouth and throat: dry mouth, no dizziness, no nasal congestion, no nasal discharge, no sinus pressure, no sore throat, no throat swelling - Cardiovascular no chest pain, no diaphoresis, no dyspnea, no edema - Respiratory other (Hx lung CA), no cough, no dyspnea, no wheezing - Gastrointestinal abdominal pain, bloating, nausea, vomiting, no constipation, no diarrhea - Genitourinary no dysuria, no flank pain, no urinary frequency - Musculoskeletal no back pain, no joint swelling, no limited range of motion, no neck pain - Neurological weakness, no confusion, no dizziness, no focal weakness - Psychiatric no anxiety, no depression - Hematologic/Lymphatic no easy bleeding, no easy bruising General Surgery Exam Initial Vital Signs Temp Pulse Resp BP Pulse Ox 98.1 F 70 17 131/68 99 04/22/19 01:00 04/22/19 01:00 04/22/19 01:00 04/22/19 01:00 04/22/19 01:00 - General physical appearance no distress, moderate pain. negative: jaundice - Eyes PERRL, normal ocular movement. negative: icteric - ENT no congestion, dry mucosa. negative: nasal discharge - Neck trachea midline, no venous distension - Respiratory normal respiratory effort, clear to auscultation - Cardiovascular Cardiovascular exam: Absent: JVD - Abdomen Abdomen general surgery: Present: bowel sounds present, soft, distended, tender Abdominal Tenderness: Present: diffusely - Incision Incision: Present: intact (+ecchymosis) - Genitourinary Present: normal penis with no external lesions - Integumentary Integumentary general surgery: Present: warm and dry - Neurologic Present: CN 2-12 grossly intact, normal coordination - Musculoskeletal Present: normal posture - Psychiatric Psychiatric general surgery: Present: A&Ox3, appropriate Exam Initial Vital Signs Temp Pulse Resp BP Pulse Ox 98.1 F 70 17 131/68 99 04/22/19 01:00 04/22/19 01:00 04/22/19 01:00 04/22/19 01:00 04/22/19 01:00 Results - Labs 04/22/19 01:26 04/22/19 01:26 Abnormal lab results WBC 13.5 K/mcL (4.3-11.1) H 04/22/19 01:26 RBC 3.88 M/mcL (4.19-5.50) L 04/22/19 01:26 Hgb 11.7 g/dL (12.9-16.9) L 04/22/19 01:26 Hct 36.3 % (37.5-50.1) L 04/22/19 01:26 RDW 17.4 % (11.5-14.5) H 04/22/19 01:26 Neutrophils # 11.3 K/mcL (1.6-8.9) H 04/22/19 01:26 Glucose 116 mg/dL (70-105) H 04/22/19 01:26 Total Bilirubin 1.1 mg/dL (0.3-1.0) H 04/22/19 01:26 Direct Bilirubin 0.3 mg/dL (0.0-0.2) H 04/22/19 01:26 AST 44 Units/L (13-39) H 04/22/19 01:26 Alkaline Phosphatase 205 Units/L (34-104) H 04/22/19 01:26 Diabetes panel 04/22/19 Range/Units 01:26 Sodium 136 (136-145) mEq/L Potassium 4.0 (3.5-5.1) mEq/L Chloride 98 (98-107) mEq/L Carbon Dioxide 28 (23-29) mEq/L BUN 19 (8-23) mg/dL Creatinine 1.03 (0.70-1.30) mg/dL Glucose 116 H (70-105) mg/dL Calcium 9.6 (8.6-10.3) mg/dL AST 44 H (13-39) Units/L ALT 41 (7-52) Units/L Alkaline Phosphatase 205 H (34-104) Units/L Albumin 4.3 (3.5-5.7) g/dL Calcium panel 04/22/19 Range/Units 01:26 Calcium 9.6 (8.6-10.3) mg/dL Albumin 4.3 (3.5-5.7) g/dL Pituitary panel 04/22/19 Range/Units 01:26 Sodium 136 (136-145) mEq/L Potassium 4.0 (3.5-5.1) mEq/L Chloride 98 (98-107) mEq/L Carbon Dioxide 28 (23-29) mEq/L BUN 19 (8-23) mg/dL Creatinine 1.03 (0.70-1.30) mg/dL Glucose 116 H (70-105) mg/dL Calcium 9.6 (8.6-10.3) mg/dL Adrenal panel 04/22/19 Range/Units 01:26 Sodium 136 (136-145) mEq/L Potassium 4.0 (3.5-5.1) mEq/L Chloride 98 (98-107) mEq/L Carbon Dioxide 28 (23-29) mEq/L BUN 19 (8-23) mg/dL Creatinine 1.03 (0.70-1.30) mg/dL Glucose 116 H (70-105) mg/dL Calcium 9.6 (8.6-10.3) mg/dL Total Bilirubin 1.1 H (0.3-1.0) mg/dL AST 44 H (13-39) Units/L ALT 41 (7-52) Units/L Alkaline Phosphatase 205 H (34-104) Units/L Albumin 4.3 (3.5-5.7) g/dL All other labs normal. - Imaging CT scan - abdomen: image reviewed (Undifferentiated colitis involving the ascending and proximal transverse colon. Favor infectious or inflammatory etiologies given apparent patency of the abdominal aortic visceral arterial branch vessels. Surrounding inflammatory stranding and fluid without evidence of perforation. Probably a reactive ileus involving several loops of small bowel.) CT scan - pelvis: image reviewed Consult Discharge Plan - Plan Referrals: Nael Lora MD [Primary Care Provider] -
[2019-04-22] MEDS ORDERED: Naloxone 0.4 MG/ML INJ IVP PRN (07:57)
[2019-04-22] MEDS: Diltiazem CD (24hr) 240 MG CAPSULE PO SCH (09:21)
[2019-04-22] MEDS: 0.9 % Sodium Chloride 1,000 ML IVC SCH (09:21)
[2019-04-22] MEDS: Vitamin B Complex/Vit C/Vit E 1 EACH TABLET PO SCH (09:22)
[2019-04-22] MEDS ORDERED: Ondansetron 4 MG/2 ML VIAL IVP PRN (09:34)
--- NOTE | 2019-04-22 11:22 | Internal Med History&Physical ---
Date of Encounter: 04/22/19 Time of Encounter: 07:35 Internal Medicine - H&P: HPI Chief complaint: Abdominal pain Admitted From: Home Plans for Post Hospital Care: Home History of present illness: Mr. Solomon is a 68 year old male with a past medical history of posterior arthritis, A. fib, COPD, DM 2, HTN, nephrolithiasis and lung cancer. He presented with a 3 day hx of generalized abdominal pain with associated nausea a nd vomiting. Pateint ad open appendectomy 2 weeks ago at [facility]. He was recovering nicely, up until 2 days ago when he began experiencing the above symptoms. On encounter patient described 5/10 generalized dull aching abdominal pain was no aggravating or relieving factors. He states he has constant nausea and had multiple bouts of vomiting yesterday. Vomitus was nonbilious and nonb loody. He admits that he is able to pass some flatus but has not had a bowel movement in 4 days even though he continues to eat. He denies fever and chills. Patient has history of lung cancer and has undergone chemotherapy. Past Med Surg Social Fam HX - Past Medical History Medical history: arthritis, atrial fibrillation, cancer, COPD, diabetes, hypertension, kidney stones Additional medical history: shingles, RUBÉN w/ cpap, aflutter, lung cancer (small cell) Psychiatric history: no psych history - Past Surgical History Surgical History: cholecystectomy, orthopedic, other, vascular surgery Additional surgical history: ablasion, iliac stent, EGD/Colonoscopy, CEA, hernia repair with mesh, compartment syndrome - Social History Smoking Status: Former smoker Smokeless Tobacco Status: No Alcohol use: none Drug use: none - Family History Father Hx Family Cardiac Disorders: Yes (cabg) Hx Family Endocrine Disorder: Yes (DM) Brother Hx Family Cardiac Disorders: Yes (PAD, carotid artherosclerotic disease) Internal Medicine - H&P: Meds Atorvastatin [Lipitor] 20 mg PO HS 07/23/15 [History] Carvedilol 12.5 mg PO BID 07/23/15 [History] Cyanocobalamin/Folic Acid [Vitamin L58-Zsahv Acid Tablet] 1,000 each PO DAILY 04/14/18 [History] traZODone [TraZODone] 50 - 100 mg PO HS PRN 04/14/18 [History] Diltiazem CD (24hr) [Cardizem CD] 240 mg PO DAILY 04/22/19 [History] Allergy/AdvReac Type Severity Reaction Status Date / Time No Known Allergies Allergy Verified 04/13/18 20:41 All Systems PM: A 10-system review of systems was performed and is negative for pertinent findings except as documented above in the HPI. Review of systems: GENERAL: No fever or chills HEENT: No rhinorrhea, No sore throat, No ear pain or discharge, No dysphagia or odynophagia PULMONARY: No cough, No chest pain, No Sputum production, No dyspnea on exertion CARDIOVASCULAR: No chest pain, no palpitations, No shortness of breath, No PND, No orthopnea GASTROINTESTINAL: Admits abdominal pain, admits nausea, admits vomiting, admits constipation, No diarrhea, No hematemesis, No hematochezia MUSKULOSKELETAL: No edema, No swelling, No pain INTEGUMENTARY: No new skin lesions NERVOUS SYSTEM: No Dizziness, No weakness, No slurred speech, No diplopia or blurred/ loss vision, No numbness, No tinglng sensation. - Constitutional Vitals: Temp Pulse Resp BP Pulse Ox 36.7 C 63 14 111/61 96 04/22/19 06:44 04/22/19 06:44 04/22/19 06:44 04/22/19 06:44 04/22/19 07:50 Exam: GENERAL: Not in distress. Alert and Oriented HEENT: EOMI, PERRLA MOUTH: Moist oral mucosa NECK:No JVD, No lymph nodes. CHEST AND LUNGS: Normal breath sounds, no wheezes or crackles HEART: S1 and S2 normal, no murmurs ABDOMEN: Soft, mild generalized tenderness, no guarding, no rebound tenderness, ecchymotic lesions in left lower quadrant region from previous subcutaneous heparin doses, appendectomy scar is healing. no organomegaly SKIN: Normal color, no rahses, no lesions EXTREMITIES: No deformity, no edema, no tenderness, no joint swelling or clubbing NEUROLOGICAL: Normal cognition, normal motor and sensory exam. Internal Med - H&P Results - Labs CBC & Chem 7: 04/22/19 01:26 04/22/19 01:26 Labs: Short CBC 04/22/19 Range/Units 01:26 WBC 13.5 H (4.3-11.1) K/mcL Hgb 11.7 L (12.9-16.9) g/dL Hct 36.3 L (37.5-50.1) % Plt Count 250 (140-400) K/mcL Neutrophils # 11.3 H (1.6-8.9) K/mcL BMP 04/22/19 01:26 Sodium 136 Potassium 4.0 Chloride 98 Carbon Dioxide 28 BUN 19 Creatinine 1.03 Glucose 116 H Calcium 9.6 Liver Function 04/22/19 Range/Units 01:26 Total Bilirubin 1.1 H (0.3-1.0) mg/dL Direct Bilirubin 0.3 H (0.0-0.2) mg/dL AST 44 H (13-39) Units/L ALT 41 (7-52) Units/L Alkaline Phosphatase 205 H (34-104) Units/L Albumin 4.3 (3.5-5.7) g/dL - Impressions ITS Impressions Abdomen/Pelvis CT 04/22/19 04:08 IMPRESSION: Undifferentiated colitis involving the ascending and proximal transverse colon. Favor infectious or inflammatory etiologies given apparent patency of the abdominal aortic visceral arterial branch vessels. Surrounding inflammatory stranding and fluid without evidence of perforation. Probably a reactive ileus involving several loops of small bowel. Bilateral nonobstructive nephrolithiasis. Areas of decreased enhancement at the renal superior poles is likely due to clusters of small cysts which are too small to characterize as opposed to pyelonephritis or less likely infarct. Mild perivesicular fat stranding. Consider correlation with urinalysis. D/ / Subhash Mascorro / Subhash Mascorro Interpreting Provider: Subhash Mascorro - Assessment and Plan (1) Small bowel obstruction Current Visit: Yes Status: Acute Assessment and plan: Had open appendectomy 2 weeks ago. Patient presented with a four-day history of abdominal pain, nausea and vomiting. Also reports a 4 day history of constipation although he is able to pass some flatus. CT scan showing colitis with what looks like reactive bilaterally involving several loops of the small bowel. Surgery on consult Chief patient nothing by mouth, give adequate IV fluids and antibiotics. (2) Colitis Current Visit: Yes Status: Acute (3) Ileus Current Visit: Yes Status: Acute Assessment and plan: Findings suggestive of possible reactive ileus involving several loops of small bowel seen on CT scan which I reviewed. Patient seen by general surgery. Recommendation is to give IV antibiotics, keep nothing by mouth and allow some bowel rest for now. (4) History of lung cancer Current Visit: Yes Status: Chronic Assessment and plan: Patient follows with oncology as outpatient (5) Hypertension Current Visit: Yes Status: Acute Assessment and plan: Continue home medications. BP currently controlled Qualifiers: Hypertension type: essential hypertension Qualified Code(s): I10 - Essential (primary) hypertension (6) Nephrolithiasis Current Visit: No Status: Chronic Assessment and plan: Patient has a history of recurrent kidney stones Bilateral nonobstructing nephrolithiasis seen on CT scan. We will hydrate patient adequately and monitor (7) Atrial fibrillation Current Visit: No Status: Acute Assessment and plan: Patient currently rate controlled Rate in 70s at time of encounter We will continue Cardizem. Qualifiers: Atrial fibrillation type: unspecified Qualified Code(s): I48.91 - Unspecified atrial fibrillation (8) Diabetes mellitus Current Visit: No Status: Acute Qualifiers: Diabetes mellitus type: type 2 Diabetes mellitus mcfp insulin use: without terminal worker use Diabetes mellitus complication status: without complication Qualified Code(s): E11.9 - Type 2 diabetes mellitus without complications (9) DVT prophylaxis Current Visit: Yes Status: Acute Assessment and plan: Subcutaneous heparin - Time Spent With Patient Total time spent is greater than 50% in coordination of care (as documented) at patient's floor/unit and/or counseling patient:
[2019-04-22] MEDS: *HR* HYDROmorphone (PF) 1 MG/ML SYRINGE IVP PRN ×3 (11:31→21:32)
[2019-04-22] MEDS: *HR* Heparin 5,000 UNIT/ML VIAL SQ SCH ×2 (13:22→21:20)
[2019-04-22] MEDS: Ondansetron 4 MG/2 ML VIAL IVP PRN ×2 (15:07→21:31)
[2019-04-23] MEDS: Ondansetron 4 MG/2 ML VIAL IVP PRN ×2 (05:12→13:11)
[2019-04-23] MEDS: 0.9 % Sodium Chloride 1,000 ML IVC SCH ×3 (05:13→23:41)
[2019-04-23] MEDS: *HR* Heparin 5,000 UNIT/ML VIAL SQ SCH ×3 (05:13→20:21)
[2019-04-23 08:18] LABS: Basophils # 0.1 K/mcL (0.0-0.2); Basophils % 0.4 %; Eosinophils % 0.2 %; Hematocrit 36.2 % (37.5-50.1); Hemoglobin 11.4 g/dL (12.9-16.9); Immature Granulocytes % 0.4 % (0-4); Lymphocytes % 6.2 %; Mean Corpuscular HGB Conc 31.5 g/dL (31.6-35.5); Mean Corpuscular Hemoglobin 30.5 pg (28.0-33.3); Mean Corpuscular Volume 96.8 fL (83.0-100.0); Mean Platelet Volume 10.1 fL (9.4-12.4); Monocytes # 0.9 K/mcL (0.0-1.3); Monocytes % 5.3 %; Platelet Count 207 K/mcL (140-400); Red Blood Count 3.74 M/mcL (4.19-5.50); Red Cell Distribution Width 17.2 % (11.5-14.5); Segmented Neutrophils % 87.5 %
--- NOTE | 2019-04-23 09:09 | AcuteCareSurgery Progress Note ---
Date of Encounter: 04/23/19 Time of Encounter: 09:09 - Assessment and Plan (1) Colitis Current Visit: Yes Status: Acute Noted colits per CT scan. It appears that IV antibiotics have not yet started- will go ahead and write for Zosyn IV q8hr. Noted CT showing abundant stool throughout the colon. Will write for Dulcolax [place]. Will review med list to see if additional medication can be given for nausea. Subjective Patient reports: other (Patient states that he has been having nausea and vomiting yesterday evening and this am. Last BM Thursday. Scant flatus.) Objective Vital Signs - Last 8 Hours Temp Pulse Resp BP Pulse Ox 04/23/19 07:39 97.9 F 65 15 130/68 99 04/23/19 03:03 97.9 F 58 15 115/62 98 Intake and Output 04/22/19 04/23/19 04/23/19 23:59 07:59 15:59 Intake Total 0 / 280 1000 / 1000 Output Total 300 / 500 750 / 750 Balance -300 / -220 250 / 250 Intake: IV Fluids 1000 / 1000 0.9 % Sodium Chloride 1,000 ML 1000 / 1000 @ 50 mls/hr IVC .Q20H [facility] Rx#: [id number] Oral 0 / 0 Output: Urine 200 / 400 150 / 150 Emesis 100 / 100 600 / 600 Other: Meal Dinner Percent of Meal Consumed 0% Weight 80.5 kg Blood Glucose* 98 125 Patient Weight 04/23/19 23:59 Weight 80.5 kg - General physical appearance moderate pain - Abdomen Abdomen: Present: bowel sounds present (scant), soft, tender (Noted tenderness in lower abdomen with ecchymosis noted. ) - Labs 04/23/19 08:02 04/22/19 01:26 Consult Discharge Plan - Plan Referrals: Nael Lora MD [Primary Care Provider] -
[2019-04-23] MEDS: Vitamin B Complex/Vit C/Vit E 1 EACH TABLET PO SCH (09:48)
[2019-04-23] MEDS: Diltiazem CD (24hr) 240 MG CAPSULE PO SCH (09:48)
[2019-04-23] MEDS: Bisacodyl 10 MG RECTAL SUPPOSITORY RC SCH (10:03)
[2019-04-23] MEDS: *HR* Promethazine 25 MG/ML VIAL IVP PRN ×3 (10:03→23:38)
--- NOTE | 2019-04-23 11:34 | Internal Med Progress Note ---
Hospitalist Progress Note - Encounter Date of Encounter: 04/23/19 Time of Encounter: 07:50 - Subjective Interval History: Patient reports that he vomited every 30 minutes last night but has vomited once this morning. Describes vomitus as bilous but nonbloody. He states that abdominal pain is still present but patient endorses that it is much better than yesterday. - Exam Vitals: Temp Pulse Resp BP Pulse Ox 36.7 C 66 16 145/69 96 04/23/19 11:25 04/23/19 11:25 04/23/19 11:25 04/23/19 11:04/23/19 11:25 Exam: GENERAL: Not in distress. Alert and Oriented HEENT: EOMI, PERRLA MOUTH: Moist oral mucosa NECK:No JVD, No lymph nodes. CHEST AND LUNGS: Normal breath sounds, no wheezes or crackles HEART: S1 and S2 normal, no murmurs ABDOMEN: Soft, mild generalized tenderness,guarding noted when palpating right lumbar region, no rebound tenderness, ecchymotic lesions in left lower quadrant region from previous subcutaneous heparin doses, appendectomy scar is healing. no organomegaly SKIN: Normal color, no rahses, no lesions EXTREMITIES: No deformity, no edema, no tenderness, no joint swelling or clubbing NEUROLOGICAL: Normal cognition, normal motor and sensory exam. - Assessment and Plan (1) Small bowel obstruction Current Visit: Yes Status: Acute Assessment and Plan: Patient still has nausea and vomiting. CT scan showing colitis with what looks like reactive bilaterally involving several loops of the small bowel. Large stool burden in colon as well Seen by surgery. IV antibiotics have been started (not started yesterday). Will continue IV hydration and zofran for nausea. Dulcolax CA started by surgery for constipation. (2) Colitis Current Visit: Yes Status: Acute Assessment and Plan: WB 16.7> 13.5 Started on Zodyn Will monitor (3) Ileus Current Visit: Yes Status: Acute Assessment and Plan: Findings suggestive of possible reactive ileus involving several loops of small bowel seen on CT scan which I reviewed. IV zosyn continue bowel rest (4) History of lung cancer Current Visit: Yes Status: Chronic Assessment and Plan: Patient follows with oncology as outpatient (5) Hypertension Current Visit: Yes Status: Acute Assessment and Plan: Continue home medications. BP currently controlled (6) Nephrolithiasis Current Visit: No Status: Chronic Assessment and Plan: Patient has a history of recurrent kidney stones Bilateral nonobstructing nephrolithiasis seen on CT scan. We will hydrate patient adequately and monitor (7) Atrial fibrillation Current Visit: No Status: Acute Assessment and Plan: Patient currently rate controlled Rate in 70s at time of encounter We will continue Cardizem. (8) DVT prophylaxis Current Visit: Yes Status: Acute Assessment and Plan: Subcutaneous heparin - Time Spent with Patient Total time spent is greater than 50% in coordination of care (as documented) at patient's floor/unit and/or counseling patient: Internal Medicine: Result - Labs CBC & Chem 7: 04/23/19 08:02 04/22/19 01:26 Labs: Short CBC 04/23/19 Range/Units 08:02 WBC 16.0 H (4.3-11.1) K/mcL Hgb 11.4 L (12.9-16.9) g/dL Hct 36.2 L (37.5-50.1) % Plt Count 207 (140-400) K/mcL Neutrophils # 14.0 H (1.6-8.9) K/mcL Consult Discharge Plan - Plan Referrals: Nael Lora MD [Primary Care Provider] - (5) Hypertension Qualifiers: Hypertension type: essential hypertension Qualified Code(s): I10 - Essential (primary) hypertension (7) Atrial fibrillation Qualifiers: Atrial fibrillation type: unspecified Qualified Code(s): I48.91 - Unspecified atrial fibrillation
[2019-04-23] MEDS: Piperacillin/Tazobactam 3.375 GM in 0.9 % Sodium Chloride Mini Bag 100 ML IVPB SCH ×2 (16:11→23:39)
[2019-04-24] MEDS: *HR* Heparin 5,000 UNIT/ML VIAL SQ SCH ×3 (05:39→21:42)
[2019-04-24] MEDS: 0.9 % Sodium Chloride 1,000 ML IVC SCH ×2 (05:42→21:42)
[2019-04-24 08:11] LABS: Basophils # 0.1 K/mcL (0.0-0.2); Basophils % 0.4 %; Eosinophils % 0.2 %; Hematocrit 35.5 % (37.5-50.1); Hemoglobin 11.2 g/dL (12.9-16.9); Immature Granulocytes % 0.5 % (0-4); Lymphocytes # 1.2 K/mcL (0.6-4.6); Lymphocytes % 9.7 %; Mean Corpuscular HGB Conc 31.5 g/dL (31.6-35.5); Mean Corpuscular Hemoglobin 30.5 pg (28.0-33.3); Mean Corpuscular Volume 96.7 fL (83.0-100.0); Mean Platelet Volume 9.9 fL (9.4-12.4); Monocytes % 7.7 %; Neutrophils # 10.4 K/mcL (1.6-8.9); Platelet Count 188 K/mcL (140-400); Red Blood Count 3.67 M/mcL (4.19-5.50); Red Cell Distribution Width 16.9 % (11.5-14.5); Segmented Neutrophils % 81.5 %; White Blood Count 12.8 K/mcL (4.3-11.1)
[2019-04-24 08:31] LABS: BUN/Creatinine Ratio 24 (6-26); Blood Urea Nitrogen 24 mg/dL (8-23); Calcium 9.1 mg/dL (8.6-10.3); Carbon Dioxide 28 mEq/L (23-29); Chloride 103 mEq/L (98-107); Glucose 113 mg/dL (70-105); Osmolality,Calculated 295 (280-300); Sodium 140 mEq/L (136-145); eGFR For African Americans > 60 (> 60); eGFR For Non-African Americans > 60 (> 60)
[2019-04-24] MEDS: *HR* Promethazine 25 MG/ML VIAL IVP PRN ×2 (08:38→13:54)
[2019-04-24] MEDS: Vitamin B Complex/Vit C/Vit E 1 EACH TABLET PO SCH (08:39)
[2019-04-24] MEDS: Piperacillin/Tazobactam 3.375 GM in 0.9 % Sodium Chloride Mini Bag 100 ML IVPB SCH ×3 (08:39→23:32)
[2019-04-24] MEDS: Diltiazem CD (24hr) 240 MG CAPSULE PO SCH (08:40)
[2019-04-24] MEDS: Bisacodyl 10 MG RECTAL SUPPOSITORY RC SCH (08:40)
[2019-04-24] MEDS ORDERED: NON-FORMULARY MEDICATION 1 EACH EACH (Atorvastatin Calcium [Lipitor] 20 MG) PO SCH (09:00)
--- NOTE | 2019-04-24 10:57 | Internal Med Progress Note ---
Hospitalist Progress Note - Encounter Date of Encounter: 04/24/19 Time of Encounter: 08:45 - Subjective Interval History: No acute events overnight. Patient states that he has not been able to achieve a bowel movement yet but abdominal pain and nausea have improved. He vomited 3x yesterday. I observed about 80 ml of light brownish emesis in the emesis bag from yesterday. - Exam Vitals: Temp Pulse Resp BP Pulse Ox 36.9 C 61 17 138/70 100 04/24/19 07:39 04/24/19 07:39 04/24/19 07:39 04/24/19 07:39 04/24/19 07:39 Exam: GENERAL: Not in distress. Alert and Oriented HEENT: EOMI, PERRLA MOUTH: Moist oral mucosa NECK:No JVD, No lymph nodes. CHEST AND LUNGS: Normal breath sounds, no wheezes or crackles HEART: S1 and S2 normal, no murmurs ABDOMEN: Soft, nontender, ecchymotic lesions in left lower quadrant region from previous subcutaneous heparin doses, appendectomy scar is healing. no organomegaly SKIN: Normal color, no rahses, no lesions EXTREMITIES: No deformity, no edema, no tenderness, no joint swelling or clubbing NEUROLOGICAL: Normal cognition, normal motor and sensory exam. - Assessment and Plan (1) Small bowel obstruction Current Visit: Yes Status: Acute Assessment and Plan: Patient still has nausea and vomiting. CT scan showing colitis with what looks like reactive bilaterally involving several loops of the small bowel. Large stool burden in colon as well Seen by surgery. Continue IV antibiotics and hydration On Dulcolax MD per gen surg recommendations (2) Colitis Current Visit: Yes Status: Acute Assessment and Plan: WBC 12.8< 16.0 State that abdominal pain is improving On Zosyn Will monitor (3) Ileus Current Visit: Yes Status: Acute Assessment and Plan: Findings suggestive of possible reactive ileus involving several loops of small bowel seen on CT scan which I reviewed. IV zosyn continue bowel rest (4) History of lung cancer Current Visit: Yes Status: Chronic Assessment and Plan: Patient follows with oncology as outpatient (5) Hypertension Current Visit: Yes Status: Acute Assessment and Plan: Continue home medications. BP currently controlled (6) Nephrolithiasis Current Visit: No Status: Chronic Assessment and Plan: Patient has a history of recurrent kidney stones Bilateral nonobstructing nephrolithiasis seen on CT scan. We will hydrate patient adequately and monitor (7) Atrial fibrillation Current Visit: No Status: Acute Assessment and Plan: Patient currently rate controlled We will continue Cardizem. (8) DVT prophylaxis Current Visit: Yes Status: Acute Assessment and Plan: Subcutaneous heparin - Time Spent with Patient Total time spent is greater than 50% in coordination of care (as documented) at patient's floor/unit and/or counseling patient: Internal Medicine: Result - Labs CBC & Chem 7: 04/24/19 07:44 04/24/19 07:44 Labs: Short CBC 04/24/19 Range/Units 07:44 WBC 12.8 H (4.3-11.1) K/mcL Hgb 11.2 L (12.9-16.9) g/dL Hct 35.5 L (37.5-50.1) % Plt Count 188 (140-400) K/mcL Neutrophils # 10.4 H (1.6-8.9) K/mcL BMP 04/24/19 07:44 Sodium 140 Potassium 4.0 Chloride 103 Carbon Dioxide 28 BUN 24 H Creatinine 1.01 Glucose 113 H Calcium 9.1 Consult Discharge Plan - Plan Referrals: Nael Lora MD [Primary Care Provider] - (5) Hypertension Qualifiers: Hypertension type: essential hypertension Qualified Code(s): I10 - Essential (primary) hypertension (7) Atrial fibrillation Qualifiers: Atrial fibrillation type: unspecified Qualified Code(s): I48.91 - Unspecified atrial fibrillation
--- NOTE | 2019-04-24 13:12 | AcuteCareSurgery Progress Note ---
Date of Encounter: 04/24/19 Time of Encounter: 13:11 - Assessment and Plan (1) Colitis Current Visit: Yes Status: Acute Okay to advance to clears. Continue with IV antibiotics. Continue with out of bed and ambulation will follow CBC. Will continue to follow with you. Subjective Patient reports: other (She states he feels better today. No nausea. Mild tenderness) Objective Vital Signs - Last 8 Hours Temp Pulse Resp BP Pulse Ox 04/24/19 11:06 98.0 F 68 16 159/70 98 04/24/19 07:39 98.4 F 61 17 138/70 100 Intake and Output 04/23/19 04/24/19 04/24/19 23:59 07:59 15:59 Intake Total 1100 / 2100 100 / 100 Output Total 500 / 1425 Balance 600 / 675 100 / 100 Intake: IV Fluids 1100 / 2100 100 / 100 0.9 % Sodium Chloride 1,000 ML 1000 / 2000 @ 50 mls/hr IVC .Q20H [facility] Rx#: [id number] Zosyn 3.375 GM In 0.9 % Sodium 100 / 100 100 / 100 Chloride (Mini-Bag +) 100 ML @ 25 mls/hr IVPB Q8HR [facility] Rx#: [id number] Oral 0 / 0 Output: Urine 450 / 675 Emesis 50 / 750 Other: # Voids 2 Weight 79.8 kg Blood Glucose* 127 124 105 Patient Weight 04/24/19 23:59 Weight 79.8 kg - General physical appearance well nourished, no distress - Abdomen Abdomen: Present: soft, tender (Wound tenderness to palpation in the lower abdominal region. Appears improved compared to yesterday's exam) - Labs 04/24/19 07:44 04/24/19 07:44 Diabetes panel 04/24/19 Range/Units 07:44 Sodium 140 (136-145) mEq/L Potassium 4.0 (3.5-5.1) mEq/L Chloride 103 (98-107) mEq/L Carbon Dioxide 28 (23-29) mEq/L BUN 24 H (8-23) mg/dL Creatinine 1.01 (0.70-1.30) mg/dL Glucose 113 H (70-105) mg/dL Calcium 9.1 (8.6-10.3) mg/dL Calcium panel 04/24/19 Range/Units 07:44 Calcium 9.1 (8.6-10.3) mg/dL Pituitary panel 04/24/19 Range/Units 07:44 Sodium 140 (136-145) mEq/L Potassium 4.0 (3.5-5.1) mEq/L Chloride 103 (98-107) mEq/L Carbon Dioxide 28 (23-29) mEq/L BUN 24 H (8-23) mg/dL Creatinine 1.01 (0.70-1.30) mg/dL Glucose 113 H (70-105) mg/dL Calcium 9.1 (8.6-10.3) mg/dL Adrenal panel 04/24/19 Range/Units 07:44 Sodium 140 (136-145) mEq/L Potassium 4.0 (3.5-5.1) mEq/L Chloride 103 (98-107) mEq/L Carbon Dioxide 28 (23-29) mEq/L BUN 24 H (8-23) mg/dL Creatinine 1.01 (0.70-1.30) mg/dL Glucose 113 H (70-105) mg/dL Calcium 9.1 (8.6-10.3) mg/dL Consult Discharge Plan - Plan Referrals: Nael Lora MD [Primary Care Provider] -
[2019-04-24] MEDS: Ondansetron 4 MG/2 ML VIAL IVP PRN (17:56)
[2019-04-25 05:54] LABS: Basophils # 0.1 K/mcL (0.0-0.2); Basophils % 0.5 %; Eosinophils # 0.1 K/mcL (0.0-0.6); Immature Granulocytes % 0.5 % (0-4); Lymphocytes # 1.3 K/mcL (0.6-4.6); Lymphocytes % 11.8 %; Mean Corpuscular HGB Conc 30.6 g/dL (31.6-35.5); Mean Corpuscular Hemoglobin 30.1 pg (28.0-33.3); Mean Corpuscular Volume 98.6 fL (83.0-100.0); Monocytes # 0.9 K/mcL (0.0-1.3); Monocytes % 8.1 %; Neutrophils # 8.6 K/mcL (1.6-8.9); Platelet Count 157 K/mcL (140-400); Red Blood Count 3.65 M/mcL (4.19-5.50); Red Cell Distribution Width 16.8 % (11.5-14.5); Segmented Neutrophils % 78.1 %; White Blood Count 11.1 K/mcL (4.3-11.1)
[2019-04-25] MEDS: *HR* Heparin 5,000 UNIT/ML VIAL SQ SCH ×3 (06:00→20:38)
[2019-04-25 06:05] LABS: BUN/Creatinine Ratio 21 (6-26); Blood Urea Nitrogen 22 mg/dL (8-23); Calcium 8.9 mg/dL (8.6-10.3); Carbon Dioxide 29 mEq/L (23-29); Chloride 104 mEq/L (98-107); Glucose 115 mg/dL (70-105); Osmolality,Calculated 292 (280-300); Potassium 3.6 mEq/L (3.5-5.1); Sodium 139 mEq/L (136-145); eGFR For African Americans > 60 (> 60); eGFR For Non-African Americans > 60 (> 60)
[2019-04-25] MEDS: Piperacillin/Tazobactam 3.375 GM in 0.9 % Sodium Chloride Mini Bag 100 ML IVPB SCH ×3 (08:12→23:46)
[2019-04-25] MEDS: Diltiazem CD (24hr) 240 MG CAPSULE PO SCH (08:13)
[2019-04-25] MEDS: Bisacodyl 10 MG RECTAL SUPPOSITORY RC SCH (08:13)
[2019-04-25] MEDS: Vitamin B Complex/Vit C/Vit E 1 EACH TABLET PO SCH (08:13)
--- NOTE | 2019-04-25 08:50 | AcuteCareSurgery Progress Note ---
<Olinda Crowley Demetrius - Last Filed: 04/25/19 08:52> Date of Encounter: 04/25/19 Time of Encounter: 07:15 - Assessment and Plan (1) Colitis Current Visit: Yes Status: Acute Improved. He has no involuntary guarding or pain. Can advance diet to FLD for breakfast and soft for lunch. If he tolerates, he will be ok for d/c. OK for primo/flag at d/c (for 7 days). He can follow-up wit his surgeon at [facility]. Per patient he has an appointment for chemotherapy Thursday at the [facility]. I have reached out to pt's oncologist (Dr. Thornton [phone]) to ask if he should present for chemo or reschedule given resolving colitis. (2) Status post appendectomy Current Visit: Yes Status: Acute postoperative hematoma. Colitis appears independent of previous appendectomy Subjective Patient reports: no new complaints, feels better, pain is less, tolerating liquids well, voiding w/o difficulty, flatus, no bowel movement, afebrile Objective Vital Signs - Last 8 Hours Temp Pulse Resp BP Pulse Ox 04/25/19 06:43 98.3 F 55 15 137/69 97 04/25/19 06:41 98.3 F 55 15 137/69 97 04/25/19 03:24 98.2 F 58 15 145/72 98 Intake and Output 04/24/19 04/25/19 04/25/19 23:59 07:59 15:59 Intake Total 1310 / 1570 340 / 340 Output Total 125 / 375 450 / 450 Balance 1185 / 1195 -110 / -110 Intake: IV Fluids 1100 / 1300 100 / 100 0.9 % Sodium Chloride 1,000 ML 1000 / 1000 @ 50 mls/hr IVC .Q20H DIA Rx#: [id number] Zosyn 3.375 GM In 0.9 % Sodium 100 / 300 100 / 100 Chloride (Mini-Bag +) 100 ML @ 25 mls/hr IVPB Q8HR DIA Rx#: [id number] Oral 210 / 270 240 / 240 Output: Urine 125 / 325 450 / 450 Other: Meal Dinner Percent of Meal Consumed 0% Weight 82.5 kg Patient Weight 04/25/19 23:59 Weight 82.5 kg - General physical appearance well nourished, no distress, no pain - ENT atraumatic, normocephalic - Neck Neck exam: trachea midline - Respiratory normal expansion, normal respiratory effort - Cardiovascular Cardiovascular exam: Present: RRR - Abdomen Abdomen: Present: bowel sounds present, soft, tender (expected near ecchymosis) Hernia: none - Incision Incision: Present: clean and dry, intact - Integumentary other (postop ecchymosis) - Neurologic normal sensation - Musculoskeletal normal posture - Psychiatric oriented to time, oriented to person, oriented to place - Labs 04/25/19 04:54 04/25/19 04:54 Diabetes panel 04/25/19 Range/Units 04:54 Sodium 139 (136-145) mEq/L Potassium 3.6 (3.5-5.1) mEq/L Chloride 104 (98-107) mEq/L Carbon Dioxide 29 (23-29) mEq/L BUN 22 (8-23) mg/dL Creatinine 1.03 (0.70-1.30) mg/dL Glucose 115 H (70-105) mg/dL Calcium 8.9 (8.6-10.3) mg/dL Calcium panel 04/25/19 Range/Units 04:54 Calcium 8.9 (8.6-10.3) mg/dL Pituitary panel 04/25/19 Range/Units 04:54 Sodium 139 (136-145) mEq/L Potassium 3.6 (3.5-5.1) mEq/L Chloride 104 (98-107) mEq/L Carbon Dioxide 29 (23-29) mEq/L BUN 22 (8-23) mg/dL Creatinine 1.03 (0.70-1.30) mg/dL Glucose 115 H (70-105) mg/dL Calcium 8.9 (8.6-10.3) mg/dL Adrenal panel 04/25/19 Range/Units 04:54 Sodium 139 (136-145) mEq/L Potassium 3.6 (3.5-5.1) mEq/L Chloride 104 (98-107) mEq/L Carbon Dioxide 29 (23-29) mEq/L BUN 22 (8-23) mg/dL Creatinine 1.03 (0.70-1.30) mg/dL Glucose 115 H (70-105) mg/dL Calcium 8.9 (8.6-10.3) mg/dL Consult Discharge Plan - Plan Referrals: Nael Lora MD [Primary Care Provider] - <Keegan Issa - Last Filed: 04/25/19 10:31> Date of Encounter: 04/25/19 Objective Vital Signs - Last 8 Hours Temp Pulse Resp BP Pulse Ox 04/25/19 10:13 97.9 F 64 15 137/71 97 04/25/19 06:43 98.3 F 55 15 137/69 97 04/25/19 06:41 98.3 F 55 15 137/69 97 04/25/19 03:24 98.2 F 58 15 145/72 98 Intake and Output 04/24/19 04/25/19 04/25/19 23:59 07:59 15:59 Intake Total 1310 / 1570 340 / 340 Output Total 125 / 375 450 / 750 300 / 750 Balance 1185 / 1195 -110 / -410 -300 / -410 Intake: IV Fluids 1100 / 1300 100 / 100 0.9 % Sodium Chloride 1,000 ML 1000 / 1000 @ 50 mls/hr IVC .Q20H DIA Rx#: [id number] Zosyn 3.375 GM In 0.9 % Sodium 100 / 300 100 / 100 Chloride (Mini-Bag +) 100 ML @ 25 mls/hr IVPB Q8HR DIA Rx#: [id number] Oral 210 / 270 240 / 240 Output: Urine 125 / 325 450 / 750 300 / 750 Other: Meal Dinner Percent of Meal Consumed 0% Weight 82.5 kg Patient Weight 04/25/19 23:59 Weight 82.5 kg - Labs 04/25/19 04:54 04/25/19 04:54 Diabetes panel 04/25/19 Range/Units 04:54 Sodium 139 (136-145) mEq/L Potassium 3.6 (3.5-5.1) mEq/L Chloride 104 (98-107) mEq/L Carbon Dioxide 29 (23-29) mEq/L BUN 22 (8-23) mg/dL Creatinine 1.03 (0.70-1.30) mg/dL Glucose 115 H (70-105) mg/dL Calcium 8.9 (8.6-10.3) mg/dL Calcium panel 04/25/19 Range/Units 04:54 Calcium 8.9 (8.6-10.3) mg/dL Pituitary panel 04/25/19 Range/Units 04:54 Sodium 139 (136-145) mEq/L Potassium 3.6 (3.5-5.1) mEq/L Chloride 104 (98-107) mEq/L Carbon Dioxide 29 (23-29) mEq/L BUN 22 (8-23) mg/dL Creatinine 1.03 (0.70-1.30) mg/dL Glucose 115 H (70-105) mg/dL Calcium 8.9 (8.6-10.3) mg/dL Adrenal panel 04/25/19 Range/Units 04:54 Sodium 139 (136-145) mEq/L Potassium 3.6 (3.5-5.1) mEq/L Chloride 104 (98-107) mEq/L Carbon Dioxide 29 (23-29) mEq/L BUN 22 (8-23) mg/dL Creatinine 1.03 (0.70-1.30) mg/dL Glucose 115 H (70-105) mg/dL Calcium 8.9 (8.6-10.3) mg/dL - Attending Attestation I have personally performed a face to face evaluation on this patient. I have reviewed and agree with the care plan. History and Exam by me shows: The patient is seen and evaluated on morning rounds with the acute care surgery team. The patient does not have any abdominal pain. We will advance his diet from clear liquids to full liquids. There is some question as to whether or not we should proceed with his chemotherapy later this week. The oncologist at the [facility] will be contacted for further information. The patient is progressing well with conservative treatment of his colitis after laparoscopic appendectomy converted to open at the [facility]
--- NOTE | 2019-04-25 10:33 | Internal Med Progress Note ---
Hospitalist Progress Note - Encounter Date of Encounter: 04/25/19 Time of Encounter: 10:33 - Subjective Interval History: No acute events overnight. Patient admits some nausea but did not vomit overnight. He has also noted improvement in his abdominal pain and denies fever and chills. - Exam Vitals: Temp Pulse Resp BP Pulse Ox 36.6 C 64 15 137/71 97 04/25/19 10:13 04/25/19 10:13 04/25/19 10:13 04/25/19 10:13 04/25/19 10:13 Exam: GENERAL: Not in distress. Alert and Oriented HEENT: EOMI, PERRLA MOUTH: Moist oral mucosa NECK:No JVD, No lymph nodes. CHEST AND LUNGS: Normal breath sounds, no wheezes or crackles HEART: S1 and S2 normal, no murmurs ABDOMEN: Soft, nontender, ecchymotic lesions in left lower quadrant region from previous subcutaneous heparin doses, appendectomy scar is healing. no organomegaly SKIN: Normal color, no rashes, no lesions EXTREMITIES: No deformity, no edema, no tenderness, no joint swelling or clubbing NEUROLOGICAL: Normal cognition, normal motor and sensory exam. - Assessment and Plan (1) Small bowel obstruction Current Visit: Yes Status: Acute Assessment and Plan: Patient has some nauesea but no vomiting overnight. CT scan showing colitis with what looks like reactive bilaterally involving several loops of the small bowel. Large stool burden in colon as well Can start FLD this morning and advance to soft diet for lunch. Can dc if patient tolerates diet. Patient had very small bowel movements yesterday. I'll monitor all day today and see if he tolerates all meals. (2) Colitis Current Visit: Yes Status: Acute Assessment and Plan: WBC 11.1< 12.8 Continue Zosyn Will transition to cipro/flagyl on dc (3) Ileus Current Visit: Yes Status: Acute Assessment and Plan: Findings suggestive of possible reactive ileus involving several loops of small bowel seen on CT scan which I reviewed. IV zosyn Will advance diet today. (4) History of lung cancer Current Visit: Yes Status: Chronic Assessment and Plan: Gen Surgery spoke to patient's oncologist at the [facility]. Patient was scheduled for a chemo session on Thursday but will have to call and schedule an appointment for 05/04/2019 instead. I will make a copy of DC summary available to oncologist [facility]. (5) Hypertension Current Visit: Yes Status: Acute Assessment and Plan: Continue home medications. BP currently controlled (6) Nephrolithiasis Current Visit: No Status: Chronic Assessment and Plan: Patient has a history of recurrent kidney stones Bilateral nonobstructing nephrolithiasis seen on CT scan. We will hydrate patient adequately and monitor (7) Atrial fibrillation Current Visit: No Status: Acute Assessment and Plan: Patient currently rate controlled We will continue Cardizem. (8) DVT prophylaxis Current Visit: Yes Status: Acute Assessment and Plan: Subcutaneous heparin - Time Spent with Patient Total time spent is greater than 50% in coordination of care (as documented) at patient's floor/unit and/or counseling patient: Internal Medicine: Result - Labs CBC & Chem 7: 04/25/19 04:54 04/25/19 04:54 Labs: Short CBC 04/25/19 Range/Units 04:54 WBC 11.1 (4.3-11.1) K/mcL Hgb 11.0 L (12.9-16.9) g/dL Hct 36.0 L (37.5-50.1) % Plt Count 157 (140-400) K/mcL Neutrophils # 8.6 (1.6-8.9) K/mcL BMP 04/25/19 04:54 Sodium 139 Potassium 3.6 Chloride 104 Carbon Dioxide 29 BUN 22 Creatinine 1.03 Glucose 115 H Calcium 8.9 Consult Discharge Plan - Plan Referrals: Nael Lora MD [Primary Care Provider] - (5) Hypertension Qualifiers: Hypertension type: essential hypertension Qualified Code(s): I10 - Essential (primary) hypertension (7) Atrial fibrillation Qualifiers: Atrial fibrillation type: unspecified Qualified Code(s): I48.91 - Unspecified atrial fibrillation
[2019-04-25] MEDS: Ondansetron 4 MG/2 ML VIAL IVP PRN ×2 (13:30→23:46)
[2019-04-25] MEDS: 0.9 % Sodium Chloride 1,000 ML IVC SCH (16:49)
[2019-04-26] MEDS ORDERED: *HR* HYDROcodone/Acet 5/325 mg TABLET PO ONE (03:05)
[2019-04-26 06:18] LABS: Basophils # 0.1 K/mcL (0.0-0.2); Basophils % 0.4 %; Eosinophils # 0.1 K/mcL (0.0-0.6); Eosinophils % 1.1 %; Hemoglobin 11.7 g/dL (12.9-16.9); Immature Granulocytes % 0.5 % (0-4); Lymphocytes # 1.1 K/mcL (0.6-4.6); Lymphocytes % 8.4 %; Mean Corpuscular HGB Conc 31.6 g/dL (31.6-35.5); Mean Corpuscular Hemoglobin 30.2 pg (28.0-33.3); Mean Corpuscular Volume 95.4 fL (83.0-100.0); Monocytes % 7.2 %; Neutrophils # 10.9 K/mcL (1.6-8.9); Platelet Count 152 K/mcL (140-400); Red Blood Count 3.88 M/mcL (4.19-5.50); Red Cell Distribution Width 16.4 % (11.5-14.5); Segmented Neutrophils % 82.4 %; White Blood Count 13.2 K/mcL (4.3-11.1)
[2019-04-26] MEDS: *HR* Heparin 5,000 UNIT/ML VIAL SQ SCH (06:24)
[2019-04-26 06:38] LABS: BUN/Creatinine Ratio 18 (6-26); Blood Urea Nitrogen 18 mg/dL (8-23); Carbon Dioxide 26 mEq/L (23-29); Chloride 102 mEq/L (98-107); Glucose 116 mg/dL (70-105); Osmolality,Calculated 295 (280-300); Potassium 3.3 mEq/L (3.5-5.1); Sodium 141 mEq/L (136-145); eGFR For African Americans > 60 (> 60); eGFR For Non-African Americans > 60 (> 60)
[2019-04-26 07:40] VITALS: BP 145/71
[2019-04-26] MEDS: Vitamin B Complex/Vit C/Vit E 1 EACH TABLET PO SCH (08:13)
[2019-04-26] MEDS: Diltiazem CD (24hr) 240 MG CAPSULE PO SCH (08:13)
[2019-04-26] MEDS: Bisacodyl 10 MG RECTAL SUPPOSITORY RC SCH (08:13)
[2019-04-26] MEDS: Piperacillin/Tazobactam 3.375 GM in 0.9 % Sodium Chloride Mini Bag 100 ML IVPB SCH (08:13)
--- NOTE | 2019-04-26 08:50 | Discharge Summary ---
Date of Encounter: 04/26/19 Time of Encounter: 08:46 - Discharge Diagnosis (1) Small bowel obstruction Priority: Primary Status: Acute (2) Colitis Priority: Secondary Status: Acute (3) Ileus Priority: Secondary Status: Acute (4) History of lung cancer Priority: Secondary Status: Chronic (5) Hypertension Priority: Secondary Status: Acute Qualifiers: Hypertension type: essential hypertension Qualified Code(s): I10 - Essential (primary) hypertension (6) Nephrolithiasis Priority: Secondary Status: Chronic (7) Atrial fibrillation Priority: Secondary Status: Acute Qualifiers: Atrial fibrillation type: unspecified Qualified Code(s): I48.91 - Unspecified atrial fibrillation (8) DVT prophylaxis Priority: Secondary Status: Acute Hospital course: Mr. Solomon is a 68 year old male with past medical history of Afib, hypertension, hyperlipidemia and Lung Ca who presented 2 weeks after an appendectomy with abdominal pain, nausea and vomiting. Imaging revealed, Colitis with reactive ileitis and ileus. He also had a large colonic stool burden on CT and was given RI dulcolax. Patient's symptoms improved after achieving some bowel movement. We gave IV antibiotics for the colitis and ileitis. He is being discharged on a we ek's course of Cipro and Flagyl. Oxycodone has been discontinued since it is likely contributing to patient's constipation. Discharge discussed with: patient, nurse, networks computer consultant (40minutes) - Time Spent with Patient Total time spent providing and/or coordinating discharge services: - Discharge Medications Prescriptions: New Ciprofloxacin [Cipro] 500 mg PO BID #14 tablet metroNIDAZOLE [Flagyl] 500 mg PO TID #21 tablet Continued Carvedilol 12.5 mg PO BID Cyanocobalamin/Folic Acid [Vitamin I12-Ljbpc Acid Tablet] 1,000 tab PO DAILY Diltiazem CD (24hr) [Cardizem CD] 240 mg PO DAILY Lisinopril 2.5 mg PO DAILY Pantoprazole Sodium [Protonix] 40 mg PO DAILY Atorvastatin Calcium [Lipitor] 20 mg PO DAILY Docusate Sodium [Dok] 1 cap PO BID PRN PRN Reason: Constipation Discontinued Metoclopramide [Reglan] 10 mg PO TID PRN PRN Reason: Nausea Oxycodone HCl 5 mg PO Q6H PRN PRN Reason: Moderate Pain Home Medications: Carvedilol 12.5 mg PO BID 07/23/15 [History] Cyanocobalamin/Folic Acid [Vitamin R10-Nmdpt Acid Tablet] 1,000 tab PO DAILY 04/14/18 [History] Atorvastatin Calcium [Lipitor] 20 mg PO DAILY 04/22/19 [History] Diltiazem CD (24hr) [Cardizem CD] 240 mg PO DAILY 04/22/19 [History] Docusate Sodium [Dok] 1 cap PO BID PRN 04/22/19 [History] Lisinopril 2.5 mg PO DAILY 04/22/19 [History] Pantoprazole Sodium [Protonix] 40 mg PO DAILY 04/22/19 [History] Ciprofloxacin [Cipro] 500 mg PO BID #14 tablet 04/26/19 [Rx] metroNIDAZOLE [Flagyl] 500 mg PO TID #21 tablet 04/26/19 [Rx] Allergies/Adverse Reactions: Allergy/AdvReac Type Severity Reaction Status Date / Time No Known Allergies Allergy Verified 04/13/18 20:41 Date of admission: 04/24/19 16:32 Primary care physician: Nael Lora MD Consults: 04/22/19 05:34 Consult to Surgery [CONS] Stat Consulting Provider: Surgery [facility] Reason for Consult: colitis, n/v, ileus Call Completed: Yes - Constitutional Vitals: Temp Pulse Resp BP Pulse Ox 36.6 C 62 16 145/71 97 04/26/19 07:39 04/26/19 07:39 04/26/19 07:39 04/26/19 07:39 04/26/19 07:39 Exam: GENERAL: Not in distress. Alert and Oriented HEENT: EOMI, PERRLA MOUTH: Moist oral mucosa NECK:No JVD, No lymph nodes. CHEST AND LUNGS: Normal breath sounds, no wheezes or crackles HEART: S1 and S2 normal, no murmurs ABDOMEN: Soft, nontender, ecchymotic lesions in left lower quadrant region from previous subcutaneous heparin doses, appendectomy scar is healing. no organomegaly SKIN: Normal color, no rashes, no lesions EXTREMITIES: No deformity, no edema, no tenderness, no joint swelling or clubbing NEUROLOGICAL: Normal cognition, normal motor and sensory exam. - Patient Status Disposition: Home, Self-Care Condition: Good - Discharge Instructions Follow Up With: Nael Lora MD [Primary Care Provider] - - Diet and Activity Activity: resume usual activities as tolerated Diet: advance to your usual diet
--- NOTE | 2019-04-26 08:56 | Acute Care Surgery Event Note ---
Date of Encounter: 04/26/19 Time of Encounter: 08:56 OK to d/c from a surgical perspective. Surgery will sign off. See progress note for previous recommendations.
== END 2019-04-26 11:12 | disposition home or self-care (01) | DRG 389 ==
LOC: EMEROOARM 00:40 → 3ANU 00:40 → SUATTDRO 05:49 → 3ANU 06:05
PROVIDERS: ADMIT Internal Medicine; ATTEND Internal Medicine